=== PATIENT | female | born 1940 | race Caucasian/White ===

== ENCOUNTER 2016-11-30 14:48 | Inpatient (IN) ==
[2016-11-30] MEDS ORDERED: ASPIRIN PO STA (14:51)
--- NOTE | 2016-11-30 15:21 | PROVIDER DOCUMENTATION ---
HPI-Chest Pain - General Chief Complaint: Shortness of Breath Stated Complaint: SOB/HEAVINESS IN CHEST Time Seen by Provider: 11/30/16 15:01 Source: patient Allergies/Adverse Reactions: Patient Allergies Allergy/AdvReac Type Severity Reaction Status Date / Time No Known Allergies Allergy Verified 11/30/16 15:29 Home Medications: Home Medication List Medication Instructions Recorded Confirmed Last Taken Type Bumetanide [Bumex] 2 mg PO DAILY 05/30/14 11/30/16 1 Day Ago History Amlodipine Besylate/Benazepril 1 each PO DAILY 01/11/15 11/30/16 07/20/16 History [Amlodipine-Benazepril 5-20 mg] Pot Chloride/Pot Bicarb/Cit AC 20 meq PO DAILY 01/11/15 11/30/16 1 Day Ago History [Potassium Cl 25 Meq Tab Eff] Furosemide 40 mg PO DAILY 06/20/16 11/30/16 07/20/16 History Metoprolol Succinate 25 mg PO DAILY 06/20/16 11/30/16 1 Day Ago History PRAVAstatin [Pravachol] 40 mg PO QHS 06/20/16 11/30/16 1 Day Ago History Aspirin 81 mg PO DAILY #0 chewtab 06/27/16 11/30/16 1 Day Ago Rx Calcium Carbonate [Caltrate 600] 600 mg PO BID #0 tablet 06/27/16 11/30/16 1 Day Ago Rx Amiodarone HCl [Pacerone] 100 mg PO DAILY 07/20/16 11/30/16 07/20/16 History Tramadol [Ultram] 50 mg PO Q6H 07/20/16 11/30/16 1 Day Ago History Omeprazole 40 mg PO DAILY 07/21/16 11/30/16 07/20/16 History Rivaroxaban [Xarelto] 10 mg PO HS 11/30/16 11/30/16 Unknown History - History of Present Illness-CP Nature of Presenting Problem: 1 week of episodes of chest pressure and shortness of breath. Had episode today about 1:30 - Always occurs with activity. Feels substernal pressures, hard to breath, occ radiates to arms and sometimes feels lightheaded. no nausea or sweating. Hx cardiac stent in 2010. Had recent catheterization which showed low grade blockage- initially treated with eliquis but recently switched to xarelto. Cardiology Dr Bradley. Location: reports: substernal Chest Pain Radiation: reports: no radiation Quality of Pain: reports: pressure Onset/Duration: abrupt, other (episodic) Review of Systems - Adult - REVIEW OF SYSTEMS - ADULT Constitutional: reports: no symptoms reported Eyes: reports: no symptoms reported Ears, Nose, Mouth & Throat: reports: no symptoms reported Cardiovascular: reports: chest pain, other (lightheaded with chest pressure episodes) Respiratory: reports: dyspnea on exertion, shortness of breath Gastrointestinal: reports: no symptoms reported Genitourinary: reports: no symptoms reported Musculoskeletal: reports: joint pain (shoulders) Integumentary: reports: no symptoms reported Neurological: reports: no symptoms reported Psychiatric: reports: no symptoms reported Endocrine: reports: no symptoms reported Past History - Adult - PAST MEDICAL HISTORY-ADULT Review of Records: reports: Old Records Reviewed Major Childhood Illnesses: reports: denies history Cardiovascular: reports: CAD, CHF, HTN, hyperlipidemia, [place] Respiratory: reports: sleep apnea Gastrointestinal: reports: GERD Obstetrical/Gynecological: reports: denies history Genitourinary: reports: denies history Musculoskeletal: reports: denies history Neurological: reports: denies history Endocrine/Immune: reports: denies history Other Conditions: reports: denies history - PRIOR SURGERIES/PROCEDURES Surgical/Procedure History: reports: recent surgery, pacemaker, orthopedic ( extremity), back/neck (ant cervical fusion), other (cervical spine fusion) - PRIOR HOSPITALIZATIONS Prior Hospitalizations: reports: for similar symptoms - IMMUNIZATION STATUS Childhood Immunizations: See Nurse Assessment Flu Vaccine: See Nurse Assessment - FAMILY HISTORY Family History: reviewed, not pertinent Physical Exam-General - PHYSICAL EXAM-ADULT Initial Vital Signs Reviewed: Yes - CONSTITUTIONAL General Appearance: appears well, alert, no apparent distress - EYES Eyes: PERRL/EOMI - HEAD, EARS, NOSE, MOUTH & THROAT HENMT: normal ENT inspection - NECK Neck: non-tender, full range of motion, supple, normal inspection - RESPIRATORY Respiratory: chest non-tender, lungs clear, normal breath sounds - CARDIOVASCULAR Cardiovascular: normal peripheral pulses, regular rate, rhythm, no edema, no gallop, no JVD, no murmur - GASTROINTESTINAL (ABDOMEN) Abdominal Exam: normal bowel sounds, non tender, soft, no organomegaly - GENITOURINARY Rectal Exam: normal rectal tone (brown stool, heme positive) - LYMPHATIC Lymphatic: no adenopathy - MUSCULOSKELETAL Back Exam: normal inspection, no CVA tenderness, no vertebral tenderness Extremity: normal range of motion, non-tender, normal gait, normal inspection, no pedal edema - SKIN Integumentary: normal color, normal turgor, warm/dry - NEUROLOGIC Neurologic: grossly normal, no motor/sensory deficits - PSYCHIATRIC Psych/Mental Status: normal mood/affect, normal thought content Progress - PLAN OF CARE/RESULTS Progress/Plan/Lab Results: Vital Signs - 8 hr 11/30/16 14:52 11/30/16 18:27 Temperature 98.5 F Pulse Rate 59 L 69 Respiratory Rate 18 18 Blood Pressure 139/67 136/86 O2 Sat by Pulse Oximetry 98 96 11/30/16 17:18 Stool Occult Blood (MELCHOR) - Final Stool Laboratory Results - last 24 hr 11/30/16 11/30/16 11/30/16 15:15 15:15 15:15 WBC 5.16 RBC 2.98 L Hgb 8.0 L Hct 26.1 L MCV 87.6 MCH 26.8 L MCHC 30.7 L RDW Std Deviation 16.5 H Plt Count 233 MPV 12.8 H Immature Gran % (Auto) 0.0 Neut % (Auto) 65.4 Lymph % (Auto) 26.4 [place] % (Auto) 7.8 Eos % (Auto) 0.0 Baso % (Auto) 0.4 Immature Gran # (Auto) 0.00 Neut # (Auto) 3.38 Lymph # (Auto) 1.36 [place] # (Auto) 0.40 Eos # (Auto) 0.00 Baso # (Auto) 0.02 PT INR PTT (Actin FS) D-Dimer < 0.10 Sodium 139 Potassium 4.2 Chloride 100 Carbon Dioxide 26 Anion Gap 13 BUN 19 Creatinine 1.0 H Estimated GFR/1.73 m2 54 BUN/Creatinine Ratio 19 Glucose 92 Calculated Osmolality 279 Calcium 10.0 Magnesium 2.2 Total Bilirubin 0.29 AST 16 ALT 16 Alkaline Phosphatase 79 Creatine Kinase 92 Troponin T Oco-V-Fcvujvtglkw Pept Total Protein 7.2 Albumin 3.9 Globulin 3.3 Albumin/Globulin Ratio 1.2 Urine Source Urine Color Urine Turbidity Urine pH Ur Specific [place] Urine Protein Ur Glucose (Stick) Ur Ketones (Stick) Urine Blood Urine Nitrite Urine Bilirubin Urobilinogen Dipstick Urine Leukocytes Urine WBC (Auto) Urine RBC (Auto) U Epithel Cells (Auto) Urine Bacteria (Auto) 11/30/16 11/30/16 11/30/16 15:15 15:15 15:15 WBC RBC Hgb Hct MCV MCH MCHC RDW Std Deviation Plt Count MPV Immature Gran % (Auto) Neut % (Auto) Lymph % (Auto) [place] % (Auto) Eos % (Auto) Baso % (Auto) Immature Gran # (Auto) Neut # (Auto) Lymph # (Auto) [place] # (Auto) Eos # (Auto) Baso # (Auto) PT 12.0 H INR 1.13 PTT (Actin FS) 28.0 D-Dimer Sodium Potassium Chloride Carbon Dioxide Anion Gap BUN Creatinine Estimated GFR/1.73 m2 BUN/Creatinine Ratio Glucose Calculated Osmolality Calcium Magnesium Total Bilirubin AST ALT Alkaline Phosphatase Creatine Kinase Troponin T < 0.010 Zvy-T-Ppqmwhhxkzo Pept 1086 H Total Protein Albumin Globulin Albumin/Globulin Ratio Urine Source Urine Color Urine Turbidity Urine pH Ur Specific [place] Urine Protein Ur Glucose (Stick) Ur Ketones (Stick) Urine Blood Urine Nitrite Urine Bilirubin Urobilinogen Dipstick Urine Leukocytes Urine WBC (Auto) Urine RBC (Auto) U Epithel Cells (Auto) Urine Bacteria (Auto) 11/30/16 11/30/16 15:15 17:40 WBC RBC Hgb Hct MCV MCH MCHC RDW Std Deviation Plt Count MPV Immature Gran % (Auto) Neut % (Auto) Lymph % (Auto) [place] % (Auto) Eos % (Auto) Baso % (Auto) Immature Gran # (Auto) Neut # (Auto) Lymph # (Auto) [place] # (Auto) Eos # (Auto) Baso # (Auto) PT INR PTT (Actin FS) D-Dimer Sodium Potassium Chloride Carbon Dioxide Anion Gap BUN Creatinine Estimated GFR/1.73 m2 BUN/Creatinine Ratio Glucose Calculated Osmolality Calcium Magnesium Total Bilirubin AST ALT Alkaline Phosphatase Creatine Kinase Troponin T < 0.010 Lba-T-Vvqydeihnws Pept Total Protein Albumin Globulin Albumin/Globulin Ratio Urine Source CLEAN CATCH Urine Color STRAW Urine Turbidity CLEAR Urine pH 7.0 Ur Specific [place] 1.003 Urine Protein NEGATIVE Ur Glucose (Stick) NEGATIVE Ur Ketones (Stick) NEGATIVE Urine Blood NEGATIVE Urine Nitrite NEGATIVE Urine Bilirubin NEGATIVE Urobilinogen Dipstick NORMAL Urine Leukocytes NEGATIVE Urine WBC (Auto) <10 Urine RBC (Auto) <10 U Epithel Cells (Auto) <10 Urine Bacteria (Auto) NEGATIVE Orders Category Date Time Status Cardiac Monitoring DIRECTED Care 11/30/16 14:51 Active Oxygen Therapy- ED Nursing DIRECTED Care 11/30/16 14:51 Active Saline Loc NOW Care 11/30/16 14:51 Active CHEST-2 VIEWS [RAD] Stat Exams 11/30/16 14:51 Taken CBC WITH ELECTRONIC DIFF [HEME] Stat Lab 11/30/16 15:15 Completed CK PROFILE [SP CHEM] Stat Lab 11/30/16 15:15 Completed COMPREHENSIVE METABOLIC PANEL [CHEM] Stat Lab 11/30/16 15:15 Completed D-DIMER [CHEM] Stat Lab 11/30/16 15:15 Completed MAGNESIUM [CHEM] Stat Lab 11/30/16 15:15 Completed OCCULT BLOOD SCREENING [STOOL] Stat Lab 11/30/16 17:18 Completed PRO B-NATRIURETIC PEPTIDE Stat Lab 11/30/16 15:15 Completed PROTIME WITH INR [COAG] Stat Lab 11/30/16 15:15 Completed PTT [COAG] Stat Lab 11/30/16 15:15 Completed TROPONIN T Stat Lab 11/30/16 15:15 Completed TROPONIN T Stat Lab 11/30/16 17:40 Completed UA NIMS W/REFLEX CULT [URINALYSIS] Stat Lab 11/30/16 15:15 Completed 0.9% Sodium Chloride Inj [Ns] 1,000 ml Med 11/30/16 17:09 Discontinued IV 999 mls/hr Aspirin Med 11/30/16 14:51 Discontinued 325 mg PO STAT STA EKG [EKG] Stat Ther 11/30/16 14:51 Draft EKG [EKG] Stat Ther 11/30/16 17:26 Ordered Result Diagrams: 11/30/16 15:15 11/30/16 15:15 - EKG 1 Time of EKG reading by physician:: 17:40 EKG Read and Signed by:: Malou Navarro EKG Interpretation (*Must complete 3 of following elements*): Abnormal Rate: 71 Rhythm: atrial paced with pvc [place]: normal ST Wave: non-specific ST changes (T wave changes laterally stable) - XRAY 1 XRAY Study: Chest (consistent with emphysema, no acute changes) - CONSULTS/PCP/HOSPITALIST Notification #1 *Consult/PCP/Hospitalist*: Dr Miguel Time Discussed: 19:25 (called hospitalist 18:50) Reason/Comments: chest pain, worsening anemia Consult Disposition: Will see in ED, Admit Departure - Departure Time of Disposition Decision: 19:25 DIAGNOSIS: Angina pectoris, Anemia, GI bleed Disposition: ADMITTED INPATIENT 09 Certified Medical Emergency: Emergent Condition: Fair Referrals and Follow-Ups: Lance Douglas MD [Primary Care Provider] -
--- NOTE | 2016-11-30 15:35 | EKG Report ---
Test Performed on : 11/30/2016 2:54:41 PM Test Reason : Chest Pain Blood Pressure : / mmHG Vent. Rate : 067 BPM Atrial Rate : 081 BPM P-R Int : 230 ms QRS Dur : 080 ms QT Int : 450 ms P-R-T Axes : 000 022 101 degrees QTc Int : 475 ms Atrial-paced rhythm with prolonged AV conduction with premature ventricular or aberrantly conducted complexes. Nonspecific T wave abnormality Abnormal ECG When compared with ECG of 21-JUL-2016 00:46, Inverted T waves have replaced nonspecific T wave abnormality in Lateral leads Unconfirmed Result
[2016-11-30 15:43] LABS: MANUAL DIFF NEEDED? NO
[2016-11-30 15:53] LABS: BASO% 0.4 % (0.0-0.8); HEMATOCRIT 26.1 % (37.0-47.0); LYMPH# 1.36 X1000 (1.2-3.4); LYMPH% 26.4 % (20.5-51.1); MCH 26.8 PG (27-31); MCHC 30.7 g/dL (33-37); MCV 87.6 FL (81-99); MONO% 7.8 % (1.7-9.3); MPV 12.8 FL (7.4-10.4); NEUT% 65.4 % (42.2-75.2); PLT 233 X1000 (130-400); RBC 2.98 XMIL (4.2-5.4)
[2016-11-30 15:59] LABS: INR 1.13
[2016-11-30 16:19] LABS: ALBUMIN 3.9 g/dL (3.5-5.0); MAGNESIUM 2.2 mg/dL (1.5-2.7); POTASSIUM 4.2 mmol/L (3.5-5.1); TOTAL BILIRUBIN 0.29 mg/dL (0.20-1.00); TOTAL PROTEIN 7.2 g/dL (6.3-8.3)
[2016-11-30] MEDS ORDERED: NS 1,000 ML IV ONE (17:09)
[2016-11-30 17:20] LABS: URINE CULTURE NEEDED? NO; URINE MICRO REVIEW NEEDED? NO; URINE SOURCE CLEAN CATCH
[2016-11-30 17:24] LABS: BILIRUBIN URINE NEGATIVE (NEGATIVE); BLOOD URINE NEGATIVE (NEGATIVE); COLOR STRAW; GLUCOSE URINE NEGATIVE (NEGATIVE); LEUKOCYTES URINE NEGATIVE (NEGATIVE); NITRITE URINE NEGATIVE (NEGATIVE); PROTEIN URINE NEGATIVE (NEGATIVE); SP GRAVITY URINE 1.003; TURBIDITY URINE CLEAR (CLEAR); UR EPITHELIAL CELLS <10 /HPF (<10); URINE BACTERIA NEGATIVE /HPF; URINE RBC <10 /HPF (<10); URINE WBC <10 /HPF (<10); UROBILINOGEN URINE NORMAL (NORMAL)
[2016-11-30] MEDS ORDERED: TYLENOL PO PRN (22:51)
[2016-11-30] MEDS ORDERED: NITROGLYCERIN SL PRN (22:51)
[2016-11-30] MEDS ORDERED: SODIUM CHLORIDE 0.9% INJ SCH (22:51)
[2016-11-30] MEDS ORDERED: ZOFRAN IV PRN (22:51)
--- NOTE | 2016-11-30 23:31 | HISTORY AND PHYSICAL ---
PRIMARY CARE PROVIDER: Dr. Lance Douglas. CHIEF ANALYTICS OFFICER: Dr. Bradley. CHIEF COMPLAINT: Chest pain and shortness of breath. HISTORY OF PRESENT ILLNESS: Ms Zimmerman is a 76-year-old female who presented to the ER this afternoon with complaints of chest pain. The patient reports that her chest pain has been heavy in nature and has been intermittent for approximately 8 days since last . She reports that the chest pain is substernal and except for 1 episode only of some brief radiation of pain to her right arm she denies any other radiation of the pain. She does report associated symptoms of dyspnea upon exertion, fatigue and lightheadedness with her chest pain. The patient states that her chest pain only occurs when she is walking or exerting herself. It does not occur at rest. Chest pain is not reproducible with palpation. She reports that her volcanology professor is Dr. Bradley and that she sees him usually once a year. She has an appointment with him in the next 1-2 weeks for followup as well as a pacemaker check. She does have a history of sick sinus syndrome with pacemaker placement. She has a total of 2 cardiac stents. She reports that the last stent was placed in February 2016. She currently takes 81 mg aspirin as well as Xarelto 10 mg daily. Patient denies any headache, visual disturbances, abdominal pain, nausea, vomiting, or diarrhea. She denies any hematemesis, hematochezia or melena. She denies any dysuria or urinary frequency or pain, numbness or tingling in extremities. Patient does report that she does have a history of congestive heart failure and does take 40 mg of Lasix p.r.n. once daily as needed and does report that just recently she has had some increased swelling in her bilateral lower extremities though at this time she does not have any JVD noted. There is some very mild 1+ pitting edema noted in the bilateral ankles. She denies any fever, body aches or chills. The patient denies any previous history of gastrointestinal bleeding though does report that on her last colonoscopy she was reported to have polyps as well as some diverticulosis. She does also report a possible history of previous problems with anemia stating that she has in the past been placed on iron supplementation. Upon evaluation in the ER the patient was found to be anemic with a hemoglobin of 8 and hematocrit 26.1. She did have a positive Hemoccult though does not show any signs of bleeding at this time and as previously mentioned she denies any hematemesis, hematochezia or melena. She is hemodynamically stable at this time with last blood pressure being 134/57, heart rate 72. Patient's EKG does show atrial paced rhythm with prolonged AV conduction with PVCs. Also noted is some nonspecific T-wave abnormalities. Two sets of troponin in the ER were negative. ProBNP was 1086. At this time the patient denies any chest pain. We will admit the patient for further treatment, evaluation of her chest pain as well as her anemia with positive Hemoccult. REVIEW OF SYSTEMS: A 12 point review of systems was conducted with the patient and all were negative except for pertinent positives mentioned above HPI. PAST MEDICAL HISTORY: 1. COPD. 2. Asthma. 3. Obstructive sleep apnea. 4. Coronary artery disease with previous stent placement. 5. Pacemaker placement for sick sinus syndrome. 6. Congestive heart failure. 7. Hyperlipidemia. 8. Hypertension. 9. Gastroesophageal reflux disease. 10. Osteoarthritis. PAST SURGICAL HISTORY: 1. Pacemaker placement. 2. Cardiac stent placement. 3. Bilateral tubal ligation. 4. Lower back surgery for fusion of L3 through L5. 5. Recent neck surgery in 2016. 6. Right total hip arthroplasty in June 2016. 7. Bilateral carpal tunnel surgery. 8. Appendectomy. FAMILY HISTORY: The patient reports that her mother and father both had a history of heart disease. She reports that she does have siblings that have history of heart disease, hypertension, colon cancer and diabetes mellitus. There is also history of diabetes mellitus in other relatives as well. SOCIAL HISTORY: The patient currently does live alone though she does have a sister that lives near by. She denies any previous history of alcohol, tobacco or illicit drug use. ALLERGIES: Patient reports no known allergies. HOME MEDICATIONS: 1. Amiodarone 100 mg p.o. daily. 2. Amlodipine/benazepril 5/20 mg tablet 1 p.o. daily. 3. Aspirin 81 mg p.o. daily. 4. Bumex 2 mg p.o. daily. 5. Caltrate 600 mg p.o. b.i.d. 6. Furosemide 40 mg p.o. daily. The patient reports she only takes this as needed. 7. Metoprolol 25 mg p.o. daily. 8. Omeprazole 40 mg p.o. daily. 9. Potassium chloride 20 mEq tablet p.o. daily. 10. Pravastatin 40 mg p.o. at bedtime. 11. Xarelto 10 mg p.o. at bedtime. 12. Ultram 50 mg p.o. q.6 hours p.r.n. DIAGNOSTIC DATA/LABORATORY RESULTS: White blood cell count 5.16, hemoglobin 8.0, hematocrit 26.1, platelet count is 233,000. PT 12.0, INR 1.13, PTT 28. D-dimer less than 0.1. Sodium 139, potassium 4.2, chloride 100, bicarb 26, BUN 19, creatinine 1, GFR 54, glucose 92, calcium 10, magnesium 2.2. Liver function tests are within normal limits. CK 92, troponin less than 0.01 with a repeat of less than 0.01. ProBNP 1086. Urinalysis was obtained via clean catch was negative for protein, ketones, blood, nitrites, leukocytes or bacteria. EKG as stated above showed atrial paced rhythm with prolonged AV conduction with PVCs and nonspecific T-wave abnormality at a rate of 71, QTc was 506. Chest x-ray shows findings consistent with emphysema, no acute abnormalities noted. We are waiting for the official radiology over read. PHYSICAL EXAMINATION: VITAL SIGNS: Temperature 98.5 degrees, heart rate 72, respirations 16, blood pressure 134/57, oxygen saturation is 95% room air. GENERAL: Ms Zimmerman is a very pleasant 76-year-old female who is resting in the ER stretcher. She was in no acute distress. Was awake, alert and able to answer all questions appropriately. HEENT: Head is atraumatic, normocephalic. Pupils were equal, round, reactive to light, were 3 mm bilaterally and brisk. Sub conjunctivae were slightly pale. Oral mucosa was moist. Oropharynx is clear. NECK: Supple. Trachea midline. No JVD noted. CARDIOVASCULAR: Patient has normal S1, S2. No murmurs, gallops, or rubs appreciated with a regular rate and rhythm. PULMONARY: Patient has symmetrical chest expansion bilaterally. Lung sounds were clear to auscultation. Bilateral full drummond. ABDOMEN: Soft, nontender, nondistended. Bowel sounds are present in all 4 quadrants were normoactive. EXTREMITIES: No cyanosis, clubbing noted. The patient does have some mild edema in lower extremities which is I would say slight 1+ pitting edema in bilateral ankle area. Pulse, motor and sensory were intact in all extremities as well. Pedal pulses were 3+ bilaterally. INTEGUMENTARY: Patient's skin is pink, warm, dry, and intact. No lesions or sores noted. NEUROLOGICAL: Patient is alert, oriented to person, place, time, and situation. Cranial nerves 2- 12 are grossly intact. ASSESSMENT AND PLAN: 1. Chest pain. For this we will continue the patient's aspirin 81 mg. She was given a full-dose aspirin in the ER. She will be placed on a heart healthy diet. We have placed a consult with Dr. Bradley with cardiology. Will await their evaluation and further recommendations. We will continue to do a series of cardiac enzymes and repeat EKG in the morning. We have placed p.r.n. orders for nitroglycerin sublingual for chest pain though as previously mentioned the patient is not complaining of any chest pain at this time. She will be placed on telemetry and will monitor her cardiac status closely. We will place her NPO after midnight only for lipid profile in the morning and will continue to follow. 2. Anemia with positive Hemoccult, rule out gastrointestinal bleeding. The patient looking back does have a history of anemia in the past and does report that she has previously had to take iron supplements. She denies any history of gastrointestinal bleeding at this time reports no hematemesis, hematochezia or melena. She is hemodynamically stable as well. Given that the patient does have a history of coronary artery disease with stent placement, we will continue her aspirin and Xarelto therapy given her cardiac risk though will monitor her very closely for any signs of bleeding and will collect anemia profile in the morning and will continue to follow. We also placed a consult with Dr. Child of gastroenterology and will await his evaluation further recommendations as well. 3. Coronary artery disease. As mentioned above for #2 we did decide to go ahead and continue the patient's aspirin and Xarelto given her history of coronary artery disease and will continue treatment as mentioned above for #1. 4. Hypertension. Will continue the patient's blood pressure medications of amlodipine/benazepril and metoprolol and will continue to follow. 5. Hyperlipidemia. Will continue the patient's pravastatin and we have placed order for lipid profile to be drawn in the morning. The patient will placed on medical floor with telemetry. She will have vital signs q.4 hours and will do strict intake and output q.8 hours. DVT prophylaxis at this time is currently provided with Xarelto 10 mg as well as we did place order for the patient to have SCDs placed as well. She will be a on heart healthy diet. GI prophylaxis will be provided with Protonix 40 mg IV q.24 hours. Further orders and recommendations pending hospital course, diagnostic studies and physician evaluation. Dictated by ANAMIKA Ramirez for Jose Barnett MD cc: Lance Douglas MD
[2016-11-30] MEDS: PROTONIX IV SCH (23:37)
[2016-11-30] MEDS: ULTRAM PO SCH (23:37)
[2016-12-01] MEDS: ULTRAM PO SCH ×5 (04:53→21:44)
[2016-12-01 07:23] LABS: MANUAL DIFF NEEDED? NO
[2016-12-01 07:35] LABS: BASO% 0.3 % (0.0-0.8); EOS# 0.04 X1000 (0.0-0.7); EOS% 1.2 % (0.0-10.0); HEMATOCRIT 24.9 % (37.0-47.0); HEMOGLOBIN 7.4 g/dL (12.0-16.0); LYMPH# 1.23 X1000 (1.2-3.4); LYMPH% 38.3 % (20.5-51.1); MCH 26.3 PG (27-31); MCHC 29.7 g/dL (33-37); MCV 88.6 FL (81-99); MONO# 0.32 X1000 (0.11-0.59); NEUT% 50.2 % (42.2-75.2); PLT 190 X1000 (130-400); RBC 2.81 XMIL (4.2-5.4)
[2016-12-01 07:43] LABS: AGAP 12; BUN 14 mg/dL (8-22); CALCIUM 9.5 mg/dL (8.8-10.2); CHLORIDE 105 mmol/L (98-107); COSMO 283; IRON SATURATION 7 %; MAGNESIUM 2.1 mg/dL (1.5-2.7); SODIUM 142 mmol/L (136-145); TCO2 25 mmol/L (25-35); TIBC 408 ug/dL; TOTAL IRON 30 ug/dL (49-151); UNBOUND IRON 378 ug/dL (112-346)
[2016-12-01 08:30] LABS: FERRITIN 17 ng/mL (13-150)
[2016-12-01] MEDS: ASPIRIN PO SCH (09:01)
[2016-12-01] MEDS: TOPROL XL PO SCH (09:01)
[2016-12-01] MEDS: CORDARONE PO SCH (09:01)
[2016-12-01] MEDS: CALTRATE 600 PO SCH ×2 (09:02→20:47)
[2016-12-01] MEDS: BUMEX PO SCH (09:02)
[2016-12-01] MEDS: LOTREL 5/20 MG PO SCH (09:02)
[2016-12-01] MEDS ORDERED: VENOFER 300 MG in NS 250 ML IV ONE (09:30)
[2016-12-01] MEDS ORDERED: CYANOCOBALAMIN IM ONE (14:02)
--- NOTE | 2016-12-01 14:31 | PROGRESS NOTE ---
DATE: 12/01/2016 SUBJECTIVE: Today Ms. Zimmerman refers to be doing a little better. She is feeling a whole lot stronger than before. OBJECTIVE: Vital Signs: Blood pressure is 104/59, pulse is 53, respirations 16, temperature is 98.5 degrees. General: Ms. Zimmerman is a 76-year-old female. She was in bed and seems to be in no distress. She was sleeping very comfortably. HEENT: Mucosa is pink and moist. Anicteric. Acyanotic. Neck: Supple. Chest: Good air entry bilateral. No crepitations. Cardiovascular: Regular. Regular rate and rhythm. No murmur. No rubs. No gallops. Abdomen: Soft, nontender. Extremities: No pedal edema. 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 LABORATORY DATA: WBC is 3.21, hemoglobin is 7.4, platelet count of 190,000. Chemistries reviewed. Completely unremarkable. Iron level is 30, percent saturation is 7, ferritin is 17, vitamin B12 level is 237, folate is 34.1, which is elevated. IMAGING STUDIES: Review of imaging studies in the past. A barium GI swallow was done on 08/27/2016 which shows a moderate-sized hiatal hernia. Smooth narrowing at the gastroesophageal junction with intermittent passage of barium through this area appearance of which suggests achalasia. ASSESSMENT: 1. Generalized weakness and shortness of breath which I think is related to iron deficiency anemia. The patient is now status post 1 infusion of iron and she is referring to feel a whole lot better. 2. History of sick sinus syndrome. Patient with a pacemaker. 3. Changes of chronic obstructive pulmonary disease on chest x-ray. 4. Dyslipidemia. 5. History of coronary artery disease. 6. Moderate to severe hiatal hernia, Patient has been advised to get this evaluated by General surgery in the past and she is still thinking about that. 7. Esophageal achalasia. The patient intermittently complains of food sticking in the chest which I think is consistent with the barium swallow test results. GI has been consulted. I think Dr. Child is going to see her and possible EGD with dilation of gastroesophageal junction will be done. 8. Vitamin B12 deficiency. I think this is probably more nutritional in essence. We will however do intrinsic factor blocking antibody to make sure there is not any underlying pernicious anemia. I will also do a TSH level. cc: Miko Rueda MD
--- NOTE | 2016-12-01 14:41 | CONSULTATION ---
DATE OF CONSULTATION: 12/01/2016 CONSULTING PHYSICIAN: Dr. Santamaria. REASON FOR CONSULT: Profound anemia and heme-positive stool. HISTORY: This is a 76-year-old, female, who sees Dr. Bojorquez. She had a colonoscopy this August and had an EGD sometime back. Apparently, she has a large hiatal hernia. I am not sure if she did have Domenico lesion with it or not but she was scheduled for fundoplication by Dr. Gee. Apparently, she had to cancel that because of some illness. She has not seen Dr. Bojorquez or Dr. Gee back recently. She was brought to the emergency room with complaint of shortness of breath and chest pain. She was admitted when she was found to have profound anemia along with heme-positive stool. GI consult was obtained for further evaluation and treatment. The patient denies any visible signs of GI bleed. She has not had any heartburn or reflux symptoms. She has some dysphagia especially for solids but has not had any episode of acute impaction. She denies abdominal pain, abdominal cramps. Denies any nausea, vomiting. She has regular bowel movements. Has not seen any blood or mucus in her stool. Did not have any melena. She used to have dark stool when she was taking iron supplements which she has quit taking now. Since admission, she has received iron infusion and has felt better. She is no longer having any chest pain. She reported some dizziness and weakness yesterday especially when she kurt from sitting position. She has had some chest discomfort and shortness of breath but denies any palpitation, irregular heartbeat. Denied any change in appetite, has not lost any weight. PAST MEDICAL HISTORY: Significant for a hiatal hernia and gastroesophageal reflux disease. She also has history of hypertension, hyperlipidemia, coronary disease, congestive heart failure and has history of sick sinus syndrome. Currently has a pacemaker in place. She has history of COPD and asthma. She also has history of osteoarthritis. SURGERY: She has a history of bilateral tubal ligation, back surgery, neck surgery, history of hip surgery, bilateral carpal tunnel release, appendectomy and pacemaker was placed. She also has a history of PTCA and stent placement. MEDICATION: Prior to hospitalization, she was on Ultram, Xarelto, potassium chloride, Pravachol, omeprazole, metoprolol succinate, Lasix, Caltrate, Bumex, aspirin, amlodipine, omeprazole, and Pacerone. ALLERGIES: No known drug allergies. SOCIAL HISTORY: She is a and lives by herself. Does not smoke. Does not drink. Does not do illicit drugs. FAMILY HISTORY: Noncontributory. REVIEW OF SYSTEMS: As per HPI as above. EXAMINATION: Very pleasant white female. She is sitting up in the bed, conscious, alert, appears to be in no distress.Vital Signs: Temperature 98.5 degrees, pulse was 53, breathing at 15, blood pressure 104/59 mmHg. She is 184 pounds and she is 5 feet 3 inches tall. HEENT: Head is atraumatic, normocephalic. Eyes: Conjunctivae is pale. Sclerae anicteric. Nares are patent. No discharge. Mouth: Buccal mucosa is moist. Throat is normal. Neck: Is supple. No lymphadenopathy, thyromegaly. Chest: Has got a pacemaker in place. Otherwise clear to auscultate. No rhonchi or crepitations could be heard. Heart: S1, S2 audible. No murmur could be appreciated. Abdomen: Full, soft, nontender. I could not appreciate masses or megaly. No ascites noted. Bowel sounds are audible. Extremities: No pedal edema, cyanosis, clubbing was noted. DIVISION CHAIR: Grossly intact. No sensory or motor deficit. Labs reviewed which showed WBC of 3.21, hemoglobin 7.4, hematocrit 24.9, MCV 88.6, and platelets were 190,000. Sodium 142, potassium 4.1, chloride 105, bicarb 25, BUN is 14, creatinine 0.9. LFTs normal. Iron was 30, TIBC 408, ferritin level 17, B12 237, folate was 34.1. IMPRESSION: Profound anemia normocytic. The presentation is the history of hiatal hernia. 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 That is where she is bleeding from especially when she takes her Xarelto which makes her more prone to bleed. She has had chronic bleed with profound anemia. She was hemodynamically unstable but after iron infusion and hydration she has felt better and she is doing well now. She does not have any signs of active bleeding now that requires any endoscopic intervention. I would continue on proton pump inhibitor and I would leave it up to Cardiology whether to start her back on Xarelto or not. She needs to be followed up by Dr. Gee to be evaluated for possible fundoplication. I will continue to see her while she is in the hospital and Dr. Bojorquez will be back on the case on Saturday. The rest of the medical management as per the team. cc: Abdiaziz Child MD
--- NOTE | 2016-12-01 15:34 | CONSULTATION ---
DATE OF CONSULTATION: 12/01/2016 IMPRESSION: 1. Marked exertional dyspnea probably related to severe anemia. 2. Suspect recent gastrointestinal bleeding probably upper gastrointestinal in origin. 3. Atherosclerotic coronary disease with history of previous coronary angioplasty/stenting approximately 4 years ago. Patient continues without angina. Stress myocardial infarction perfusion study in July was negative for ischemia and indicated normal left ventricular ejection fraction. 4. Status post permanent pacemaker (dual-chamber). 5. Hypertension. 6. Obesity. 7. Gastroesophageal reflux disease. 8. Obstructive sleep apnea. 9. Hyperlipidemia. RECOMMENDATIONS: 1. Given severe anemia and suspected GI blood loss, will discontinue Xarelto. Patient is currently in AV paced rhythm. Presumably her Xarelto may have been prescribed for thromboembolic risk related to paroxysmal fibrillation. Risk, benefit ratio favors holding anticoagulation at this point. 2. Evaluation and management of severe anemia and possible gastrointestinal blood loss. HISTORY: This 76-year-old white female with past history of atherosclerotic coronary disease, previous permanent pacemaker implant for sick sinus syndrome, hypertension, obesity and gastroesophageal reflux disease was admitted for further evaluation and management of marked exertional dyspnea and severe anemia. She relates that over the past week she has developed exertional shortness of breath which has progressed to the point that just modest exertion provokes dyspnea. She also describes some chest discomfort which she further characterized as more of a pounding in her chest and up in her throat when she exerts. There has been no pain or anything that sounds like angina. She had stress myocardial perfusion study back in July which was negative for ischemia and indicated normal left ventricular ejection fraction. There has been no orthopnea. There has been no palpitations beyond what she describes. PAST MEDICAL HISTORY: 1. Atherosclerotic coronary disease with history of previous coronary angioplasty/stenting approximately 4 years ago. 2. Status post permanent pacemaker implant for sick sinus syndrome. 3. Presumed history of paroxysmal atrial fibrillation suppressed with amiodarone. 4. Hypertension. 5. Obesity. 6. Gastroesophageal reflux disease. PAST SURGICAL HISTORY: Includes bilateral tubal ligation, unspecified lower back surgery, unspecified neck surgery, right total hip arthroplasty, bilateral carpal tunnel surgery and appendectomy. ALLERGIES: She has no known drug allergies. MEDICATIONS: Prior to admission as listed. SOCIAL HISTORY: She does not smoke or use alcohol. FAMILY HISTORY: Negative for premature coronary disease. REVIEW OF SYSTEMS: Pulmonary: Noteworthy for exertional dyspnea but negative for cough or orthopnea. Gastrointestinal: Noteworthy for gastroesophageal reflux. She has not noted any black stools nor bright red blood per rectum. Constitutional: Negative. Remainder review of systems negative/noncontributory with 14 total systems reviewed. PHYSICAL EXAM: General: Reveals an overweight, older white female in no distress. Vital Signs: As recorded are stable include blood pressure 104/59, heart rate 53 and regular, oxygen saturation 97% on room air. HEENT Exam: Extraocular muscles appear intact. Mucous membranes are moist. Neck: Supple. No JV distention. There are no carotid bruits. Chest: Clear to auscultation bilaterally. Cardiac Exam: Reveals a regular rate and rhythm without appreciable murmur or gallop. Abdomen: Soft, nontender. Bowel sounds are normal. Extremities: Without edema. Neurologic Exam: Reveals her to be alert, fully oriented. Speech is fluent. Moves all 4 extremities equally well. Skin: Warm and dry. Psych exam: Reveals her mood to be appropriate. DIAGNOSTIC DATA: ECG demonstrates atrial paced rhythm and occasional ectopy paced complexes and nonspecific T-wave abnormality. Borderline QT interval prolongation evident. LAB DATA: Is remarkable for hematocrit 24.9 with an MCV of 88.6. BUN 14, creatinine 0.9. Ferritin 17, serum iron 30, TIBC 408, percent saturation 7. Troponin T less than 0.01. cc: Jh Ferguson MD
[2016-12-01] MEDS: PROTONIX IV SCH ×2 (20:47→21:44)
[2016-12-01] MEDS ORDERED: XARELTO PO SCH (21:00)
[2016-12-01] MEDS ORDERED: PRAVACHOL PO SCH (21:00)
[2016-12-02] MEDS: ULTRAM PO SCH ×2 (05:52→08:53)
[2016-12-02] MEDS: VENOFER 300 MG in NS 250 ML IV ONE ×2 (05:53→06:04)
[2016-12-02 07:42] LABS: MANUAL DIFF NEEDED? NO
[2016-12-02 07:43] LABS: BASO% 0.3 % (0.0-0.8); HEMATOCRIT 24.6 % (37.0-47.0); HEMOGLOBIN 7.4 g/dL (12.0-16.0); LYMPH# 1.25 X1000 (1.2-3.4); LYMPH% 32.7 % (20.5-51.1); MCH 26.4 PG (27-31); MCHC 30.1 g/dL (33-37); MCV 87.9 FL (81-99); MONO# 0.43 X1000 (0.11-0.59); MONO% 11.3 % (1.7-9.3); MPV 12.9 FL (7.4-10.4); NEUT% 55.7 % (42.2-75.2); PLT 217 X1000 (130-400)
[2016-12-02 08:13] LABS: AGAP 14; BUN 13 mg/dL (8-22); CALCIUM 9.7 mg/dL (8.8-10.2); CHLORIDE 104 mmol/L (98-107); COSMO 284; POTASSIUM 3.8 mmol/L (3.5-5.1); SODIUM 143 mmol/L (136-145); TCO2 25 mmol/L (25-35)
[2016-12-02] MEDS: CALTRATE 600 PO SCH (08:14)
[2016-12-02] MEDS: LOTREL 5/20 MG PO SCH (08:14)
[2016-12-02] MEDS: TOPROL XL PO SCH (08:14)
[2016-12-02] MEDS: BUMEX PO SCH (08:14)
[2016-12-02] MEDS: ASPIRIN PO SCH (08:14)
[2016-12-02] MEDS: CORDARONE PO SCH (08:14)
[2016-12-02] MEDS ORDERED: VITAMIN B-12 PO SCH ×2 (09:00→09:35)
[2016-12-02 11:20] VITALS: BP 128/57
--- NOTE | 2016-12-02 12:44 | PROGRESS NOTE ---
DATE: 12/02/2016 SUBJECTIVE: Patient is resting comfortably. She had a good lunch. She denies any abdominal pain, abdominal cramp. Has not had any heartburn or reflux symptoms. She has received a total of 2 units of iron and has responded well to it and feels better. Has not had any dizziness or lightheadedness. PLAN: She is scheduled to be discharged today. I have advised her to follow up with Dr. Bojorquez and Dr. Gee. cc: Abdiaziz Child MD
[2016-12-02] MEDS ORDERED: FERROUS SULFATE PO SCH (21:00)
[2016-12-02] MEDS ORDERED: COLACE PO SCH (21:00)
--- NOTE | 2016-12-03 06:02 | EKG Report ---
Test Performed on : 12/01/2016 06:22:28 AM Test Reason : Chest Pain Blood Pressure : / mmHG Vent. Rate : 067 BPM Atrial Rate : 105 BPM P-R Int : 258 ms QRS Dur : 080 ms QT Int : 460 ms P-R-T Axes : 000 039 -58 degrees QTc Int : 486 ms Atrial-paced rhythm with prolonged AV conduction with occasional AV dual-paced complexes and with oc casional premature ventricular complexes. Nonspecific T wave abnormality Prolonged QT Abnormal ECG When compared with ECG of 30-NOV-2016 17:32, (Unconfirmed) Vent. rate has decreased BY 4 BPM Confirmed by Ricardo MAN, Edu Banks ([id number]) on 12/03/2016 6:33:53 PM
--- NOTE | 2016-12-03 06:11 | DISCHARGE SUMMARY ---
ADMISSION DATE: 11/30/2016 DISCHARGE DATE: 12/02/2016 DISPOSITION: Home. FOLLOWUP: 1. Patient's PCP - Lance Douglas MD 2. Yahir Gee MD 3. Rony Bojorquez MD 4. Jh Ferguson MD CONSULTATION DURING THIS ADMISSION: 1. Gastroenterology was consulted. Patient was seen by Abdiaziz Child MD 2. Cardiology was consulted. Patient was seen by Jh Ferguson MD INVASIVE PROCEDURES DONE DURING THIS ADMISSION: None. IMAGING STUDIES OF SIGNIFICANCE: None. PRESENTING COMPLAINT: Shortness of breath. ADMISSION DIAGNOSES: 1. Chest pain. 2. Anemia with positive Hemoccult. 3. Coronary artery disease. 4. Hypertension. DISCHARGE DIAGNOSES: 1. Generalized weakness. 2. Shortness of breath secondary to severe symptomatic anemia. 3. Iron deficiency anemia. 4. Sick sinus syndrome, status post pacemaker. 5. Chronic obstructive pulmonary disease changes on chest x-ray. 6. Moderate to severe hiatal hernia. 7. Esophageal achalasia. 8. Vitamin B12 deficiency. 9. Anticoagulation with Xarelto. This has been discontinued. PRESENTING COMPLAINT: Was chest pain and shortness of breath. PRESENT COMPLAINT: Ms. Zimmerman is a 76-year-old female, who presented to the emergency department because of a week's history of progressively worsening shortness of breath associated with craving for ice. Upon presentation, the patient was evaluated and was found to have a hemoglobin level of 8.1. Hemoccult was positive. Further workup revealed severe iron deficiency. HOSPITAL COURSE: The patient was given 2 infusions of iron and subsequently she referred to be doing a whole lot better. Was seen by both Cardiology and Gastroenterology. Cardiology recommended to hold off on her Xarelto since it was felt that she could be having chronic slow GI loss from the blood thinner. Since the patient was not hemorrhaging, GI also felt it was okay to optimize her hemodynamics and then later do endoscopies outpatient with her GI doctor, Dr. Bojorquez. Of note, the patient was found to have significant hiatal hernia. She actually knew about this. GI felt that probably is Domenico lesions in the esophagus and that she needs to follow up with Dr. Yahir Gee to plan possible fundoplication, which can be done from outpatient setting. Today, Ms. Zimmerman refers to be doing a whole lot better after the infusions of iron. She has been up. She is walking around. Her vitals have been stable. We therefore felt she is stable to be discharged, to follow up with the sub-specialties involved in her care. DISCHARGE MEDICATIONS: 1. Amlodipine/benazepril 1 tablet daily. 2. Pravastatin 40 mg daily. 3. Furosemide 40 mg daily. 4. Metoprolol 25 mg daily. 5. Aspirin 81 mg daily. 6. Amiodarone 100 mg daily. 7. Tramadol 50 q. 6 hours PRN. 8. Xarelto has been discontinued. 9. Iron sulfate 325 b.i.d. 10. Cyanocobalamin 1000 mcg daily. At the time of discharge, the only pending lab was intrinsic factor blocking agent to further evaluate for the B12 deficiency. Patient will get to review this with her primary care with her GI doctor. All her vitals are stable. The patient is going to be discharged in stable condition. TIME SPENT: The time spent for discharge was 35 minutes. cc: Miko Rueda MD
--- NOTE | 2016-12-03 08:56 | Diag Imaging Result Document ---
PROCEDURE NAME: CHEST-2 VIEWS - 11/30/2016 2 VIEWS OF THE CHEST: FINDINGS: There is a large hiatal hernia. There is some lobulation of the hemidiaphragms which has not changed since 07/20/2016. There is a pacemaker on the left. There is no evidence of acute pulmonary disease. IMPRESSION: Stable chest.
--- NOTE | 2016-12-03 09:17 | EKG Report ---
Test Performed on : 11/30/2016 5:32:31 PM Test Reason : chest pain Blood Pressure : / mmHG Vent. Rate : 071 BPM Atrial Rate : 108 BPM P-R Int : 242 ms QRS Dur : 074 ms QT Int : 466 ms P-R-T Axes : 000 019 016 degrees QTc Int : 506 ms Atrial-paced rhythm with prolonged AV conduction with frequent AV dual-paced complexes and with freq uent premature ventricular complexes. T wave abnormality, consider inferior ischemia Abnormal ECG When compared with ECG of 30-NOV-2016 14:54, (Unconfirmed) Electronic ventricular pacemaker has replaced Electronic atrial pacemaker Unconfirmed Result
== END 2016-12-02 13:29 | disposition home or self-care (01) ==
LOC: ED 14:48 → 3N 21:39 → SUATTDRO 21:39
PROVIDERS: ATTEND Internal Medicine

== ENCOUNTER 2017-02-23 17:36 | Inpatient (IN) ==
[2017-02-23 18:56] LABS: BASO% 0.2 % (0.0-0.8); EOS# 0.01 X1000 (0.0-0.7); EOS% 0.2 % (0.0-10.0); HEMATOCRIT 24.7 % (37.0-47.0); HEMOGLOBIN 7.6 g/dL (12.0-16.0); IMM GRAN# 0.01 X1000 (0.0-0.04); IMM GRAN% 0.2 % (0.0-0.5); LYMPH# 1.14 X1000 (1.2-3.4); LYMPH% 18.8 % (20.5-51.1); MANUAL DIFF NEEDED? NO; MCH 28.7 PG (27-31); MCHC 30.8 g/dL (33-37); MCV 93.2 FL (81-99); MONO# 0.45 X1000 (0.11-0.59); MONO% 7.4 % (1.7-9.3); NEUT% 73.2 % (42.2-75.2); PLT 144 X1000 (130-400); RBC 2.65 XMIL (4.2-5.4)
[2017-02-23 19:19] LABS: ALBUMIN 3.8 g/dL (3.5-5.0); CALCIUM 9.2 mg/dL (8.8-10.2); POTASSIUM 3.9 mmol/L (3.5-5.1); TOTAL BILIRUBIN 0.2 mg/dL (0.20-1.00); TOTAL PROTEIN 6.6 g/dL (6.3-8.3)
--- NOTE | 2017-02-23 19:27 | PROVIDER DOCUMENTATION ---
HPI-General Adult - General Chief Complaint: General Adult Stated Complaint: WEAKNESS,DIZZINESS Time Seen by Provider: 02/23/17 18:30 Source: patient Allergies/Adverse Reactions: Patient Allergies Allergy/AdvReac Type Severity Reaction Status Date / Time No Known Allergies Allergy Verified 12/08/16 01:47 Home Medications: Home Medication List Medication Instructions Recorded Confirmed Last Taken Type Bumetanide [Bumex] 2 mg PO DAILY 05/30/14 02/23/17 02/22/17 History Amlodipine Besylate/Benazepril 1 each PO DAILY 01/11/15 02/23/17 02/22/17 History [Amlodipine-Benazepril 5-20 mg] Pot Chloride/Pot Bicarb/Cit AC 20 meq PO DAILY 01/11/15 02/23/17 02/22/17 History [Potassium Cl 25 Meq Tab Eff] Furosemide 40 mg PO DAILY 06/20/16 02/23/17 02/22/17 History Metoprolol Succinate 50 mg PO DAILY 06/20/16 02/23/17 02/22/17 History PRAVAstatin [Pravachol] 40 mg PO QHS 06/20/16 02/23/17 02/22/17 History Aspirin 81 mg PO DAILY #0 chewtab 06/27/16 02/23/17 02/22/17 Rx Omeprazole 40 mg PO DAILY 07/21/16 02/23/17 02/22/17 History Calcium Carbonate/Vitamin D3 1 each PO DAILY 12/10/16 02/23/17 02/22/17 History [Calcium 600 + Vit D Tablet] Cyanocobalamin (Vitamin B-12) 1,000 mcg PO DAILY 12/10/16 02/23/17 02/22/17 History [Vitamin B-12] Ferrous Sulfate 2 mg PO DAILY 12/10/16 02/23/17 02/22/17 History Iron,Carbonyl/Ascorbic Acid [Fe C 2 each PO DAILY 12/10/16 02/23/17 02/22/17 History Tablet] Rivaroxaban [Xarelto] 20 mg PO DAILY 12/10/16 02/23/17 02/22/17 History Sucralfate [Carafate] 1 gm PO 4XDAY 12/10/16 02/23/17 02/22/17 History Hydrocodone/APAP 10 mg/325 mg 1 each PO Q4H PRN PRN #30 tablet 12/13/1602/22/17 Rx [Sprague-10] Gabapentin [Neurontin] 100 mg PO QHS #15 capsule 01/18/17 02/23/17 02/22/17 Rx Ketorolac [Toradol] 10 mg PO Q6H PRN PRN #6 tablet 01/18/17 02/23/17 02/22/17 Rx - History of Present Illness -Gen Adult Nature of Presenting Problems: PT C/O BLACK STOOL AND ABD PAIN. STS SHE WAS SEEN AT [facility] TODAY AND SENT HERE FOR LOW H/H. HX OF ABD SURGERY IN DECEMBER AFTER WHICH SHE HAS HAD "CONSTANT PROBLEMS". ALSO HAS BEEN VOMITING AFTER PO INTAKE, DENIES BLACK OR COFFEE-GROUND EMESIS. Location of Pain/Injury: reports: abdomen Quality of Pain: reports: dull Severity: reports: mild Associated Symptoms: reports: weakness Similar Symptoms Previously?: Yes Recently seen or treated by another doctor?: Yes Review of Systems - Adult - REVIEW OF SYSTEMS - ADULT Constitutional: reports: see HPI, fatique. denies: fever Eyes: reports: no symptoms reported Ears, Nose, Mouth & Throat: reports: no symptoms reported Cardiovascular: reports: no symptoms reported. denies: chest pain, palpitations , syncope Respiratory: reports: no symptoms reported. denies: dyspnea on exertion, shortness of breath Gastrointestinal: reports: see HPI, abdominal pain, constipation, nausea, vomiting Genitourinary: reports: no symptoms reported Musculoskeletal: reports: see HPI, muscle weakness Integumentary: reports: no symptoms reported Neurological: reports: no symptoms reported Psychiatric: reports: no symptoms reported Endocrine: reports: no symptoms reported Hematologic/Lymphatic: reports: no symptoms reported Allergic/Immunologic: reports: no symptoms reported All Other Systems: Reviewed and Negative Past History - Adult - PAST MEDICAL HISTORY-ADULT Review of Records: reports: Old Records Reviewed, Nursing Assessment Review, Medications Reviewed Major Childhood Illnesses: reports: denies history Cardiovascular: reports: CAD, CHF, HTN, hyperlipidemia, [place] Respiratory: reports: sleep apnea Gastrointestinal: reports: GERD, GI bleed Obstetrical/Gynecological: reports: denies history Genitourinary: reports: denies history Musculoskeletal: reports: denies history Neurological: reports: denies history Endocrine/Immune: reports: denies history Other Conditions: reports: denies history - PRIOR SURGERIES/PROCEDURES Surgical/Procedure History: reports: recent surgery, pacemaker, orthopedic ( extremity), back/neck (ant cervical fusion), other (cervical spine fusion) - PRIOR HOSPITALIZATIONS Prior Hospitalizations: reports: for similar symptoms - IMMUNIZATION STATUS Childhood Immunizations: See Nurse Assessment Flu Vaccine: See Nurse Assessment - FAMILY HISTORY Family History: reviewed, not pertinent Physical Exam-General - PHYSICAL EXAM-ADULT Initial Vital Signs Reviewed: Yes - CONSTITUTIONAL General Appearance: appears well, alert, no apparent distress - EYES Eyes: PERRL/EOMI - HEAD, EARS, NOSE, MOUTH & THROAT HENMT: moist mucous membranes - RESPIRATORY Respiratory: chest non-tender, lungs clear, normal breath sounds, no pleuratic chest pain, no respiratory distress, no accessory muscle use - CARDIOVASCULAR Cardiovascular: regular rate, rhythm - GASTROINTESTINAL (ABDOMEN) Abdominal Exam: normal bowel sounds, no organomegaly, no pulsatile mass, distended, tenderness (GENERALIZED) - MUSCULOSKELETAL Extremity: normal range of motion, non-tender, normal gait, normal inspection - SKIN Integumentary: normal turgor, warm/dry, other (PALE) - NEUROLOGIC Neurologic: grossly normal, no motor/sensory deficits - PSYCHIATRIC Psych/Mental Status: normal mood/affect, oriented x 3 Progress - PLAN OF CARE/RESULTS Progress/Plan/Lab Results: Vital Signs - 8 hr 02/23/17 17:40 Temperature 98.9 F Pulse Rate 62 Respiratory Rate 18 Blood Pressure 105/63 O2 Sat by Pulse Oximetry 96 Laboratory Results - last 24 hr 02/23/17 02/23/17 18:07 18:07 WBC 6.08 RBC 2.65 L Hgb 7.6 L Hct 24.7 L MCV 93.2 MCH 28.7 MCHC 30.8 L RDW Std Deviation 17.6 H Plt Count 144 MPV Not Reportable Immature Gran % (Auto) 0.2 Neut % (Auto) 73.2 Lymph % (Auto) 18.8 L Allen % (Auto) 7.4 Eos % (Auto) 0.2 Baso % (Auto) 0.2 Immature Gran # (Auto) 0.01 Neut # (Auto) 4.46 Lymph # (Auto) 1.14 L Allen # (Auto) 0.45 Eos # (Auto) 0.01 Baso # (Auto) 0.01 Sodium 137 Potassium 3.9 Chloride 102 Carbon Dioxide 23 L Anion Gap 12 BUN 36 H Creatinine 1.2 H Estimated GFR/1.73 m2 44 BUN/Creatinine Ratio 30 Glucose 109 H Calculated Osmolality 283 Calcium 9.2 Total Bilirubin 0.20 AST 15 ALT 12 Alkaline Phosphatase 66 Total Protein 6.6 Albumin 3.8 Globulin 3.0 Albumin/Globulin Ratio 1.0 Orders Category Date Time Status CBC WITH ELECTRONIC DIFF [HEME] Stat Lab 02/23/17 18:07 Completed CMP [COMPREHENSIVE METABOLIC PANEL] [CHEM] Stat Lab 02/23/17 18:07 Completed DISCUSSED PT LABS AND EXAM WITH DR. AMES WHO AGREES WITH PLAN TO ADMIT. Result Diagrams: 02/23/17 18:07 02/23/17 18:07 - CONSULTS/PCP/HOSPITALIST Notification #1 *Consult/PCP/Hospitalist*: DR. GARCIA Time Discussed: 20:50 (CALL [facility] TO ADMIT.) Consult Disposition: other #2 Consult: DR. FLOWER Time Discussed: 22:00 (ADMIT TO [facility] CICU.) Consult Disposition: Admit Departure - Departure Date of Disposition Decision: 02/23/17 Time of Disposition Decision: 20:50 DIAGNOSIS: GI (gastrointestinal bleed) Qualifiers: GI bleed type/associated pathology: unspecified gastrointestinal hemorrhage type Qualified Code(s): K92.2 - Gastrointestinal hemorrhage, unspecified Disposition: [facility] 02 Certified Medical Emergency: Emergent Condition: Good - Critical Care Note This patient required my direct & personal management of CC.: No Attestation - Physician/ MARGAUX Attestation Patient care was provided by Advanced Practice Provider:: Yes Advanced Practice Provider:: [place] Advanced Practice Provider documentation review:: The Mid-level provider documentation, treatment plan and medical decision making was reviewed by the physician who agrees with all treatment and medical decision making by the MLP.
[2017-02-23 21:20] LABS: OCCULT BLOOD 1 POSITIVE (NEGATIVE)
[2017-02-24 01:05] LABS: INR 2.23 (0.86-1.15); PROTIME 24.8 Seconds (12.1-15.5); PTT PL 35.1 Seconds (22.6-43.9)
[2017-02-24] MEDS: NS 1,000 ML IV SCH ×2 (01:12→20:28)
[2017-02-24] MEDS ORDERED: PROTONIX 80 MG in NS 80 ML IV ONE (02:04)
[2017-02-24] MEDS: PROTONIX 80 MG in NS 80 ML IV SCH ×2 (02:57→12:48)
[2017-02-24] MEDS ORDERED: TYLENOL PO PRN (05:22)
[2017-02-24] MEDS ORDERED: ZOFRAN IV PRN (05:22)
[2017-02-24 06:12] LABS: IRON SATURATION 7 %; TIBC 364 ug/dL; TOTAL IRON 27 ug/dL (49-151); UNBOUND IRON 337 ug/dL (112-346)
[2017-02-24 06:31] LABS: FERRITIN 16 ng/mL (13-150)
--- NOTE | 2017-02-24 08:57 | PROGRESS NOTE ---
DATE: 02/24/2017 SUBJECTIVE: Ms. Zimmerman states that she is feeling better. This is a 76-year-old who was admitted to the hospital, I think early this morning. She has complained of weakness and dizziness. Her list of medications were reviewed. PHYSICAL EXAMINATION: Vital Signs: This morning, she has a temperature of 98.2 degrees, pulse 60, respirations 18, blood pressure 126/53. Lungs: Clear in all lung drummond. Cardiovascular Examination: Regular rhythm and rate without murmur or S3. Abdomen: Soft. Skin: Warm and dry. Weight: Was 179 pounds. Is and Os: Urine output from last night was 1300 mL. LAB: White count 6080, hematocrit 24, platelet count 144,000. Sodium 137, potassium 3.9, chloride 102, bicarb 23, BUN 36, creatinine 1.2, blood sugar 109, calcium 9.2. Note, that her iron was 27, total iron binding capacity was 364. CBC: Hemoglobin was 7.6, hematocrit 24, MCV of 23. Prothrombin time was 24.8, INR 2.23. ASSESSMENT AND PLAN: 1. Normocytic anemia. 2. Complains that her abdomen has not been moving. 3. Note, she has had a past history of chronic obstructive pulmonary disease. 4. Asthma. 5. Obstructive sleep apnea. 6. Coronary artery disease with previous stent placement. 7. Pacemaker placement. 8. Congestive heart failure. 9. Hyperlipidemia. 10. Hypertension. 11. Gastroesophageal reflux disease. 12. Osteoarthritis. 13. Bilateral tubal ligation. 14. Lower back surgery for L3 and L5. 15. Recent neck surgery in 2016. 16. Right total hip arthroplasty in June of 2016. 17. Bilateral carpal tunnel syndrome. 18. Appendectomy. PLAN: Apparently, she is admitted for a GI bleed. I assume it was a lower GI bleed. She is receiving some blood. GI is following. cc: MD Jose Thompson MD
[2017-02-24 10:24] LABS: MANUAL DIFF NEEDED? NO
[2017-02-24 10:53] LABS: BASO% 0.3 % (0.0-0.8); EOS# 0.01 X1000 (0.0-0.7); EOS% 0.3 % (0.0-10.0); HEMATOCRIT 25.1 % (37.0-47.0); LYMPH# 1.05 X1000 (1.2-3.4); LYMPH% 26.4 % (20.5-51.1); MCH 29.2 PG (27-31); MCHC 31.9 g/dL (33-37); MCV 91.6 FL (81-99); MONO# 0.32 X1000 (0.11-0.59); PLT 109 X1000 (130-400); RBC 2.74 XMIL (4.2-5.4)
[2017-02-24 11:02] LABS: AGAP 9; BUN 25 mg/dL (8-22); CALCIUM 9.1 mg/dL (8.8-10.2); CHLORIDE 110 mmol/L (98-107); COSMO 287; POTASSIUM 4.3 mmol/L (3.5-5.1); SODIUM 142 mmol/L (136-145); TCO2 23 mmol/L (25-35)
--- NOTE | 2017-02-24 17:14 | HISTORY AND PHYSICAL ---
DATE AND TIME: February 24, 2017 at 0130. PRIMARY CARE PROVIDER: Dr. Lance Douglas. CHIEF COMPLAINT: Weakness, abnormal hemoglobin and hematocrit, and dark stools. HISTORY OF PRESENT ILLNESS: Ms. Zimmerman is a 76-year-old female with a past medical history most notable for COPD, obstructive sleep apnea, coronary artery disease status post stent placement, pacemaker placement, congestive heart failure, hypertension, and anemia. She was most recently admitted in November of 2016 for chest pain, as well as anemia. During this visit she was diagnosed with iron deficiency anemia as well as esophageal achalasia and hiatal hernia. The patient reports she has previously had problems with esophageal stricture as well and has had to have multiple EGDs done in the past. Her administrative dietitian is Dr. Bojorquez. Though most recently in December 2016 Dr. Gee did perform a laparoscopic hiatal hernia repair as well as a laparoscopic Heller myotomy. His findings reported that she had a sliding hiatal hernia. Also noted at the conclusion of surgery they did perform an EGD which revealed no esophageal perforation. Dr. Gee also reported that he decided not to do a fundoplication due to the fact that the patient was not having any symptomatic reflux. She did not have any reflux on her barium swallow or any esophagitis on her EGD, as well as she had no esophageal perforation. She was discharged to follow up with Dr. Bojorquez. The patient states that ever since she underwent this procedure she has had worsening reflux, to where now she has trouble swallowing fluids down, stating that she is having a lot of problems with vomiting. She did see Dr. Bojorquez for this. He did place her medication but the patient did not know the name of this medicine at this time. She did receive an EGD approximately 3 weeks ago, though did not state any known findings as well and she was supposed to follow back up with Dr. Bojorquez according to her. The patient states that approximately 5 days ago she did notice that she was having some darker looking stools, though her main complaint at this time was that yesterday she began having a lot of weakness and dizziness, as well as exertional dyspnea. The patient states that she does not have any loose stools at this time, that she normally has problems with constipation. Her last bowel movement was a couple days ago but that she did have a little bit of a bowel movement today which revealed dark black stools. She presented to the ER at [place] after being informed by her physician's office that she had an abnormal hemoglobin and hematocrit. Once her arrival at [place] she was found to have a hemoglobin of 7, hematocrit 24, and a positive Hemoccult stool. Dr. Wen has been consulted and the patient was transferred to [facility] for further evaluation and treatment. REVIEW OF SYSTEMS: A 12 point review of systems was conducted with the patient and all were negative except for pertinent positives mentioned in the HPI. The patient denies any headache but does report some dizziness. She denies any chest pain but did report some dyspnea on exertion. She does report some generalized intermittent crampy abdominal pain. She does report some nausea and vomiting. She denies any diarrhea. She denies any urinary frequency or dysuria. Denies any pain, numbness, tingling, or swelling in her legs. She also did not report any fever, body aches, or chills. PAST MEDICAL HISTORY: 1. COPD. 2. Asthma. 3. Obstructive sleep apnea. 4. Coronary artery disease, status post stent placement. 5. Pacemaker placement for sick sinus syndrome. 6. Congestive heart failure. 7. Hyperlipidemia. 8. Hypertension. 9. Gastroesophageal reflux disease. 10. Osteoarthritis. 11. Hiatal hernia. 12. Esophageal aclasia. 13. Iron-deficiency anemia. 14. Atrial fibrillation, currently on Xarelto. PAST SURGICAL HISTORY: 1. Pacemaker placement. 2. Cardiac stent placement. 3. Bilateral tubal ligation. 4. Lower back surgery for fusion of L3 through L5. 5. Recent neck surgery in 2016. 6. Right total hip arthroplasty in June of 2016. 7. Bilateral carpal tunnel surgery. 8. Appendectomy. 9. Recent hiatal hernia repair with laparoscopic Heller myotomy. SOCIAL HISTORY: The patient currently does live alone. They report that she has a sister that lives near by. She denies any previous history of alcohol, tobacco, or illicit drug use. FAMILY HISTORY: Positive for her mother and her father both having a history of heart disease. She reports that she does have siblings that have heart disease, hypertension, colon cancer, and diabetes mellitus. There is also a history of diabetes mellitus in other relatives. ALLERGIES: Patient has no known allergies. HOME MEDICATIONS: 1. Amlodipine benazepril 5/20 mg tablet 1 p.o. daily. 2. Aspirin 81 mg p.o. daily. 3. Bumex 2 mg p.o. daily. 4. Calcium 600 plus vitamin D 600 mg p.o. daily. 5. Vitamin B12 1000 mcg p.o. daily. 6. Iron carbonyl ascorbic acid tablet two p.o. daily. 7. Toradol 10 mg p.o. q.6 hours p.r.n. as needed for pain. 8. Metoprolol 50 mg p.o. daily. 9. Omeprazole 40 mg p.o. daily. 10. Potassium chloride 25 mEq tablet p.o. daily. 11. Pravastatin 40 mg p.o. at bedtime. 12. Ranitidine 300 mg p.o. daily. 13. Xarelto 20 mg p.o. daily. 14. Sucralfate 1 g p.o. 4 times a day. DIAGNOSTIC DATA/LABORATORY RESULTS: White blood cell count 2.6, hemoglobin 7.6 , hematocrit 24.7, platelet count is 144,000. PTT 24.8, INR 2.23. PTT 35.1. Sodium 137, potassium 3.9, chloride 102, bicarb 23, BUN 36, creatinine 1.2 with a GFR 44, glucose 109, calcium 9.2. Liver function tests within normal limits. Hemoccult stool was positive. Pending diagnostic studies at this time are an EKG, anemia profile, and repeat CBC. PHYSICAL EXAMINATION: VITAL SIGNS: Temperature 98.3 degrees, heart rate 62, respirations 18, blood pressure 115/42, oxygen saturation 100% on room air. GENERAL: Ms. Zimmerman is a very pleasant, 76-year-old female who is resting comfortably in the inpatient stretcher. She is in no acute distress. She was awake, alert, and able to answer all questions appropriately. HEENT: Head is atraumatic, normocephalic. Pupils are equal, round, reactive to light, were 3 mm bilaterally and brisk. Subconjunctivae were slightly pale. Oral mucosa is moist. Oropharynx is clear. NECK: Supple. Trachea midline. CARDIOVASCULAR: Patient has normal S1, S2. No murmurs, gallops, rubs appreciated with a regular rate and rhythm. PULMONARY: Patient has symmetrical chest expansion bilaterally. Lung sounds clear to auscultation bilateral full drummond. ABDOMEN: Soft, nondistended, nontender. Bowel sounds are present in all 4 quadrants. EXTREMITIES: No cyanosis, clubbing, or edema noted. Pulse, motor, and sensory is intact in all extremities. Pedal pulses are 2+ bilaterally. INTEGUMENTARY: Patient's skin color is pink, warm, dry, and intact. No lesions or sores noted. NEUROLOGICAL: Patient is alert and oriented x4. Cranial nerves 2 through 12 are grossly intact. ASSESSMENT AND PLAN: 1. Upper gastrointestinal bleed. At this time the patient is having dark stools. She is having symptomatic anemia as well. With reports of dizziness, weakness, and dyspnea. We are going to go ahead and transfuse her with 2 units of packed red blood cells. We have placed her on a Protonix drip. She is hemodynamically stable at this time. We did order for the patient to receive an infusion of gentle fluid resuscitation with normal saline at 75 mL /h. We have placed a consult with Dr. Wen and will await her evaluation and recommendations. We have also held all of her antiplatelets and anticoagulants. We will continue to monitor closely. 2. Symptomatic anemia. As previously mentioned, the patient is currently receiving 2 units of packed red blood cells. We will repeat a CBC after this is done and we will continue to follow. We also have ordered an anemia profile. Will await those results and treat any deficiencies. 3. Coronary artery disease, status post stent placement. At this time given the patient's condition we have decided to hold her aspirin and we will continue to monitor closely. 4. Congestive heart failure. The patient has a last known EF of 60%. She is not exhibiting any signs of exacerbation or fluid overload. We will continue to monitor this closely and continue to follow. 5. Hypertension. As previously mentioned, the patient is hemodynamically stable , though is having blood pressures that are in the low to high 100 systolically. We have held her blood pressure medications at this time and will continue to follow and treat as necessary. 6. History of atrial fibrillation, on Xarelto. We have also held the patient's Xarelto. She is currently in a paced rhythm at a rate of 60. 7. The patient will be placed on CIC with telemetry. She will have vital signs q.4 hours. We will do DVT prophylaxis with SCDs. We will do strict intake and output, incentive spirometry. She will be NPO until evaluated by Dr. Wen per gastroenterology. Also the patient does have a slight decrease in her GFR with a slight increase in her creatinine. This is likely related to volume depletion from acute blood loss. We will do gentle fluid resuscitation as previously mentioned with normal saline at 75 mL/h x2 bags and will repeat a BMP in the morning. Further orders and recommendations pending hospital course, diagnostic studies, and physician evaluation. Dictated by ANAMIKA Ramirez for Jose Barnett MD cc: Jose Barnett MD MTDD
[2017-02-24 18:56] LABS: MANUAL DIFF NEEDED? NO
[2017-02-24 19:07] LABS: EOS# 0.01 X1000 (0.0-0.7); EOS% 0.2 % (0.0-10.0); HEMATOCRIT 25.4 % (37.0-47.0); HEMOGLOBIN 8.1 g/dL (12.0-16.0); LYMPH# 1.02 X1000 (1.2-3.4); LYMPH% 22.9 % (20.5-51.1); MCH 29.3 PG (27-31); MCHC 31.9 g/dL (33-37); MONO# 0.35 X1000 (0.11-0.59); MONO% 7.9 % (1.7-9.3); MPV 13.7 FL (7.4-10.4); PLT 113 X1000 (130-400); RBC 2.76 XMIL (4.2-5.4)
[2017-02-24 19:11] LABS: INR 1.06; PROTIME 11.2 Seconds (9.2-11.7); PTT 23.9 Seconds (22.0-36.0)
--- NOTE | 2017-02-24 22:46 | CONSULTATION ---
DATE OF CONSULTATION: 02/24/2017 REFERRING PHYSICIAN: Jose Miguel MD. PRIMARY CARE PROVIDER: Lance Douglas MD PRIMARY PAPER PRODUCTION ENGINEER: Rony Bojorquez MD. INDICATION FOR CONSULTATION: 1. Anemia. 2. Melena. HISTORY OF PRESENT ILLNESS: The patient is a 76-year-old white female who recently underwent hiatal hernia repair with a Heller myotomy. Postoperatively, she has continued to have nausea with vomiting and abdominal pain. Approximately 1 week ago she reports the onset of melena. She presented for evaluation due to persistent melena and weakness. In the emergency room at [facility] she was found to have melena and a hemoglobin of 7 with hematocrit of 24. She was admitted for further evaluation. PAST MEDICAL HISTORY: 1. COPD. 2. Asthma. 3. Obstructive sleep apnea. 4. Coronary artery disease, status post stent placement. 5. Cardiac pacemaker for sick sinus syndrome. 6. Congestive heart failure. 7. Hyperlipidemia. 8. Hypertension. 9. GERD. 10. Osteoarthritis. 11. Hiatal hernia. 12. Esophageal achalasia. 13. Iron-deficiency anemia. 14. Atrial fibrillation requiring Xarelto. PAST SURGICAL HISTORY: 1. Gastric pacemaker placement. 2. Cardiac stent placement. 3. Bilateral tubal ligation. 4. Back surgery for fusion of L3, L4 and L5. 5. Neck surgery in 2015. 6. Right hip arthroplasty in June 2016. 7. Bilateral carpal tunnel surgery. 8. Appendectomy. 9. Hiatal hernia repair with a laparoscopic Heller myotomy. SOCIAL HISTORY: Negative for tobacco, alcohol, recreational drug use. She lives alone. FAMILY HISTORY: Remarkable that her parents had heart disease. Her siblings have had heart disease, hypertension, colon cancer and diabetes mellitus. ALLERGIES: She has no known medication allergies. HOME MEDICATIONS: 1. Amlodipine. 2. Aspirin. 3. Bumex. 4. Calcium with vitamin D. 5. Vitamin B12. 6. Iron carbonyl with ascorbic acid. 7. Toradol. 8. Metoprolol. 9. Omeprazole. 10. Potassium chloride. 11. Pravastatin. 12. Ranitidine. 13. Xarelto. 14. Carafate. PHYSICAL EXAM: General: She is in no acute distress. Vital signs: Her blood pressure is 129/56, pulse is 60, respirations 17, temperature of 98.3 degrees. HEENT: Negative for jaundice. Neck: Is supple. Pulmonary: Lungs are clear to auscultation with normal respiratory effort. She has a pacemaker in the anterior chest wall. Cardiovascular: Reveals regular rate and rhythm with no gallops or rubs. Abdomen: Reveals normoactive bowel sounds. The abdomen is soft and nontender. There is no rebound or guarding. Extremities: Bilaterally are negative for cyanosis, clubbing, or edema. OBJECTIVE DATA: Reveals a hemoglobin of 8.0 with hematocrit of 25.1. This hemoglobin is posttransfusion of 2 units where hemoglobin went from 7.6 to 8.0 suggesting inadequate compensation due to ongoing bleeding. Her white count is 3.98 and she has 109,000 platelets. Sodium is 142, potassium 4.3, chloride 110, CO2 of 23, BUN 25, creatinine 0.9 with a glucose of 96. Her calcium is 7.1. Her iron is 27 with a vitamin B12 of 542 and a folate of 15.0. On admission on 02/23 her PT was 24.8 and INR of 2.23 with a PTT of 35.1. IMPRESSION: 1. Melena. 2. Unexplained coagulopathy. 3. Nausea with vomiting. 4. Epigastric pain. 5. Nonsteroidal anti-inflammatory drug use. 6. Use of chronic anticoagulation. RECOMMENDATION: 1. The patient has had only a small melenic stools since admission. Her blood pressure has been stable. Therefore, will place patient on the schedule for an EGD in the morning with Dr. Bojorquez. 2. She has an unexplained coagulopathy with an elevated PT and INR. The cause is unclear. In addition to the packed red blood cells as she has received, I recommend 2 units of FFP today and possibly 1 unit of FFP in the morning. After she receives 2 units of FFP this afternoon I will recheck her PT and INR. 3. Please recheck her CBC at 7 p.m. If it continues to drop I would administer additional blood products. 4. Continue Protonix drip. 5. Additional recommendations to follow based on her clinical course. cc: MD Jose Thompson MD
[2017-02-25] MEDS: PROTONIX 80 MG in NS 80 ML IV SCH ×3 (02:24→22:55)
[2017-02-25 04:53] LABS: MANUAL DIFF NEEDED? NO
[2017-02-25 05:08] LABS: EOS# 0.02 X1000 (0.0-0.7); EOS% 0.6 % (0.0-10.0); HEMATOCRIT 23.1 % (37.0-47.0); HEMOGLOBIN 7.1 g/dL (12.0-16.0); LYMPH# 0.91 X1000 (1.2-3.4); LYMPH% 26.5 % (20.5-51.1); MCH 28.6 PG (27-31); MCHC 30.7 g/dL (33-37); MCV 93.1 FL (81-99); MONO# 0.37 X1000 (0.11-0.59); MONO% 10.8 % (1.7-9.3); MPV 13.1 FL (7.4-10.4); NEUT% 62.1 % (42.2-75.2); PLT 102 X1000 (130-400); RBC 2.48 XMIL (4.2-5.4)
[2017-02-25 05:14] LABS: INR 1.02; PROTIME 10.7 Seconds (9.2-11.7); PTT 22.3 Seconds (22.0-36.0)
--- NOTE | 2017-02-25 09:01 | PROGRESS NOTE ---
DATE: 02/25/2017 SUBJECTIVE: She states that she feels a lot better. The reflux is a little better as well. She is able to swallow liquids. She has not had a bowel movement. No pain. PHYSICAL EXAMINATION: Vital Signs: This morning, she remains afebrile. Temperature 98.1 degrees, pulse 59, respirations 16, blood pressure 122/53. Lungs: Clear in all lung drummond. Cardiovascular Examination: Regular rhythm and rate without murmur or S3. Abdomen: Soft. Skin: Warm and dry. No abdominal tenderness. Is and Os: Urine output was 1500 mL. LAB: White count 3440, hematocrit is 23, platelet count 102,000. Chemistry: Sodium 142, potassium 4.3, chloride 110, bicarb 23, BUN 25, creatinine 0.9. Total iron was 27, total iron binding capacity was 364, iron saturation was 7%, unsaturated iron binding was 337, ferritin was 16. ASSESSMENT/PLAN: 1. Melena, explained coagulopathy which has resolved. She had some nausea and vomiting, gastroesophageal reflux, epigastric discomfort. Had been diagnosed with achalasia recently. Had a hiatal hernia repair with a Heller myotomy. Postoperatively, she continued to have nausea, vomiting, abdominal pain, drop in hematocrit and hemoglobin. Dr. Bojorquez to evaluate, potential for EGD. 2. Unexplained coagulopathy but she was on Xarelto for atrial fibrillation. We have held the Xarelto. 3. History of atrial fibrillation. Remains in sinus rhythm. 4. We will see what Dr. Bojorquez wants to do, EGD, advance diet as we can. She has not had a bowel movement in a couple of days. 5. Review of her orders. She is on the intravenous Protonix drip which we have changed to Protonix 40 mg intravenous every 12 hours. Otherwise, not on any medication right now. She is nothing per oral. cc: Brad Chawla MD
[2017-02-25] MEDS ORDERED: DIPRIVAN 1% ONE (09:47)
[2017-02-25] MEDS ORDERED: EPINEPHRINE SYRINGE ONE (10:07)
--- NOTE | 2017-02-25 10:45 | EKG Report ---
Test Performed on : 02/24/2017 06:03:13 AM Test Reason : Lower GI Bleed,Poss. Surgical Patient Blood Pressure : / mmHG Vent. Rate : 060 BPM Atrial Rate : 060 BPM P-R Int : 222 ms QRS Dur : 098 ms QT Int : 450 ms P-R-T Axes : 000 044 222 degrees QTc Int : 450 ms Atrial-paced rhythm with prolonged AV conduction ST \T\ T wave abnormality, consider lateral ischemia Abnormal ECG When compared with ECG of 08-DEC-2016 02:24, Electronic atrial pacemaker has replaced Junctional rhythm. T wave inversion more evident in Lateral leads Confirmed by Areli Esquivel MD ([id number]) on 02/26/2017 12:25:47 PM
--- NOTE | 2017-02-25 12:27 | CONSULTATION ---
DATE OF CONSULTATION: 02/25/2017 INDICATION: Atrial fibrillation, GI bleed. HISTORY OF PRESENT ILLNESS: Ms. Zimmerman is a 76-year-old white female with a history of atrial fib, coronary artery disease, as well as permanent pacemaker implantation. She presented for evaluation of weakness and dark stool that seemed to have been going on for the last several days. Most recently she had an EGD performed by Dr. Bojorquez, that was performed this morning, that seemed to demonstrate some AVMs treated with cautery as well as notation of gastritis. She had been on long-term Xarelto. She noted dark stools but no overt blood noted in her stool and no hematemesis. She denies any overt chest pain. No recent falls. No heart racing spells. PAST MEDICAL HISTORY: 1. Significant for coronary artery disease with previous PCI. Notably, her last heart catheterization was in 2014 at [facility]. This demonstrated a lesion of 30% in the mid LAD. Diagonal had an ostial 70 to 80%. Circumflex has mild regularities. Patent stents were noted in the RCA. PDA had an ostial 50 to 60. EF was 60% on that study. 2. Diastolic heart failure. 3. History of Brugada syndrome. 4. Diastolic heart failure. 5. Paroxysmal atrial fibrillation. 6. Sick sinus syndrome, status post permanent pacemaker implantation. 7. Hypertension. 8. Hyperlipidemia. 9. Previous history of GI bleeds, notably in November of 2016. 10. Reflux disease. 11. Tinnitus. 12. Sleep apnea. SOCIAL HISTORY: She lives alone. Sister that lives nearby. No previous history of tobacco use. FAMILY HISTORY: Significant for a mother and father having history of heart disease. Siblings with heart disease as well including hypertension, colon cancer, diabetes mellitus. REVIEW OF SYSTEMS: A 10 system review of systems is negative except for those things mentioned in HPI. PHYSICAL EXAMINATION: Vital signs: Afebrile. Heart rate 59, blood pressure 147/67. General: She is in no acute distress. HEENT: Oropharynx is moist. Normal normal dentition. Eye examination is pink conjunctivae, white sclerae. Neck: Examination shows no obvious thyromegaly or thyroid tenderness. Cardiovascular: She sounds to be in a regular rate and rhythm. She has no obvious murmurs. No S3. She is in a paced rhythm by telemetry. She has no lower extremity edema. Chest: Exam sounds relatively clear to auscultation bilaterally. She has no increased work of breathing. Abdomen: Soft, nontender, nondistended. She has no obvious organomegaly. Skin Exam: Warm and dry throughout without any rashes. Neurological: Moving all extremities well. Cranial nerves 2 through 12are intact without any sensation deficits. Psychiatric: Alert and orient pleasant. Normal mood and affect. PERTINENT DATA: Her EKG on the at 6:03 shows an atrial paced rhythm with ventricular sensed complexes. Her white count is 3.4, hematocrit 23.1, platelet count 102,000. INR 1.02. Sodium yesterday was 142, potassium 4.3, BUN 25, creatinine 0.9. ASSESSMENT: 1. Gastrointestinal bleed. 2. History of atrial fibrillation as well as coronary disease. PLAN: At this point, the patient has been discontinued off her Xarelto as well as her aspirin therapy. I would agree with continuing withholding these medications. We will follow up on the results of her colonoscopy tomorrow and evaluate the recommendations of Dr. Bojorquez regarding further anticoagulation usage. cc: MD Brad Dacosta MD
[2017-02-25] MEDS: REGLAN IV SCH ×2 (13:07→18:19)
[2017-02-25] MEDS ORDERED: GOLYTELY PO ONE (14:00)
[2017-02-25] MEDS: CARAFATE LIQUID PO SCH ×2 (14:19→21:38)
--- NOTE | 2017-02-25 17:50 | OPERATIVE NOTE ---
PROCEDURE DATE: 02/25/2017 PHYSICIAN: Dr. Kline. TITLE PROCEDURE: Esophagogastroscopy with hemostasis. PREOP DIAGNOSES: 1. Melena. 2. Anemia. Admission hematocrit 24% required 2 units of blood transfusion now current hematocrit is 22%. 3. Coagulopathy secondary to Xarelto which was held for 2 days. 4. History of atrial fibrillation and coronary disease on Xarelto being monitored Dr. Bradley. 5. History of recent surgery in the form of hiatal hernia repair and Heller myotomy few months ago by Dr. Gee followed by worsening acid reflux requiring Prilosec, Carafate and Reglan at home. POSTOP DIAGNOSES: 1. Z-line was at 36 cm. 2. Hiatal hernia measuring about 5-6 cm sliding type. 3. Evidence of mild gastritis in the hiatal sac. 4. Mild gastritis in the stomach, body, antrum. 5. Normal fundus, cardia, incisura and hiatal hernia retroflexion. 6. Evidence of 2 arterial venous malformations small nonbleeding in the third portion duodenum which was treated with epinephrine injection followed by black wire cautery. ESTIMATED BLOOD LOSS: Minimal. COMPLICATIONS: None. ANESTHESIA: Monitored anesthesia care. SPECIMEN: None. PROCEDURE: Informed consent the patient risks, benefits, indications, alternatives, patient was prepared for EGD. The risks of infection, bleeding, pain, trauma to the surrounding structures explained the patient among others and she acknowledged and agreed to proceed. The patient brought to the OR. She was turned to the left position, a bite block was placed on. After adequate monitored anesthesia scope was introduced advanced towards all the way to the third portion of duodenum. The esophagus normal in the entire length. Z-line was at 30 cm. There was no evidence any ulcerations or esophagitis. There was evidence of hiatal hernia measuring 5 cm sliding type. There was evidence of mild erythema at certain spots in the hiatal sac. There was no evidence any ulceration the hiatal sac. The stomach and body showed evidence mild gastritis. There was no erosions, ulcerations noted. Retroflexion stomach revealed internal hiatal hernia but no evidence of any ulcerations or any evidence of varices. The duodenal bulb and second portion appeared normal. The third portion duodenum showed evidence of 2 AVMs which were nonbleeding and small, these were treated with epinephrine injection followed by black wire cautery successfully. The air was withdrawn. The patient tolerated procedure and was stable condition. RECOMMENDATIONS: 1. The patient will continue Protonix twice daily for now and will keep her on Protonix twice daily on discharge for the next 1 month and then lower down to once daily for another 3 months. 2. Patient continue on Carafate 1 g 6 hours for 6 weeks. 3. Patient will be on Reglan 10 mg p.o. q.6 hours for now and hold for side effects like tardive dyskinesia. 4. The patient is on clear liquid diet advance as tolerated. 5. Patient will be on aspirin precautions and chew the food well and drink plenty fluids with meals. 6. If patient continues to have symptomatic acid reflux and choking spells we will discuss that with Dr. Gee in order to pursue partial fundoplication. 7. Will also consult Dr. Bradley as patient is concerned about holding Xarelto for now because of her known history of coronary disease and atrial fibrillation. I called and discussed that with Dr. Bradley as well. 8. Will keep a close eye on her hemoglobin and hematocrit and type and cross, transfuse hematocrit more than 25%. 9. Further recommendations depending hospital stay. cc: MD Rony Milton MD Allen J. Schmidt, MD
[2017-02-26] MEDS: CARAFATE LIQUID PO SCH ×4 (01:06→20:34)
[2017-02-26] MEDS: REGLAN IV SCH ×3 (03:17→17:55)
--- NOTE | 2017-02-26 08:23 | PROGRESS NOTE ---
DATE: 02/26/2017 SUBJECTIVE: Ms. Zimmerman reports she is doing well. She feels better today. No heart racing overnight. PHYSICAL EXAMINATION: Vital Signs: Afebrile. Heart rate 61. Blood pressure 109/60. General: No acute distress. Cardiovascular: She is in a regular rate and rhythm. She has no murmurs. No S3. No lower extremity edema. Chest: Exam sounds clear bilaterally. No increased work of breathing. Abdomen: Soft, nontender. No obvious organomegaly. Skin: Warm and dry throughout. PERTINENT DATA: Laboratories from yesterday show a white count of 3.4, hematocrit 23, platelet count of 102,000. She has no recent labs today. ASSESSMENT: 1. Gastrointestinal bleed. 2. History of atrial fibrillation. PLAN: We will continue with holding the Xarelto. She is undergoing colonoscopy today. We will use the findings from the colonoscopy and the EGD regarding further treatment with anticoagulation. cc: MD Brad Dacosta MD
--- NOTE | 2017-02-26 08:47 | CONSULTATION ---
DATE OF CONSULTATION: 02/25/2017 REASON FOR CONSULTATION: Gastroesophageal reflux. May need fundoplication. HISTORY OF PRESENT ILLNESS: This is a 76-year-old female, known to or status post laparoscopic hiatal hernia repair and laparoscopic Heller myotomy on 12/12/2016. She was admitted two days ago with symptomatic anemia and underwent an EGD this morning by Dr. Bojorquez. She also has noted a significant increase in reflux-type symptoms with indigestion, heartburn, and some nausea and vomiting since her operation with me 2 months ago. Her dysphagia has seemingly resolved although she noted some dysphagia a few days ago. She has had a lot of severe coughing spells since surgery. She is currently taking Carafate 4 times a day as well as omeprazole daily and ranitidine 300 mg daily. So far, this does not seem to be controlling her symptoms. On the EGD today, Dr. Bojorquez found a couple of small AVMs in her duodenum that were not actively bleeding. She had some very mild gastritis near the hiatus, and she had an apparent recurrent 5-6 cm hiatal hernia. There were no ulcers or Domenico's lesions. She had no stricture. PAST MEDICAL HISTORY: Achalasia status post Heller myotomy, COPD, asthma, obstructive sleep apnea, coronary artery disease, sick sinus syndrome, status post cardiac pacemaker, congestive heart failure, hyperlipidemia, hypertension, osteoarthritis, hiatal hernia status post laparoscopic hiatal hernia repair, iron deficiency anemia, atrial fibrillation. PAST SURGICAL HISTORY: Gastric pacemaker placement, cardiac stent placement, bilateral tubal ligation, fusion of L3-4 and 5, neck surgery 2015, right hip replacement in 06/2016, bilateral carpal tunnel repair, appendectomy, laparoscopic hiatal hernia with Heller myotomy. HOME MEDICATIONS: 1. Bumex. 2. Potassium chloride. 3. Amlodipine/benazepril. 4. Pravastatin. 5. Metoprolol. 6. Aspirin 81 mg daily. 7. Xarelto 20 mg p.o. daily. 8. Omeprazole 40 mg p.o. daily. 9. Carafate 1 g p.o. four times daily. 10. Calcium and vitamin D. 11. Vitamin B12. 12. Iron tablets. 13. Toradol as needed. ALLERGIES: No known drug allergies. REVIEW OF SYSTEMS: Ten systems reviewed and negative except as noted above in HPI. FAMILY HISTORY: Notable for heart disease, colon cancer, and diabetes. SOCIAL HISTORY: Negative for tobacco, alcohol, or illicit drug use. PHYSICAL EXAMINATION: Vital Signs: Temperature 98.2 degrees, pulse 60, respirations 18, blood pressure 151/64. O2 saturation 100%. General: She is a well-developed, well-nourished female, in no acute distress and in good spirits. HEENT: Normocephalic atraumatic. Extraocular muscles intact. Pupils equal, round, reactive to light. Sclerae anicteric. Neck: Supple. No thyromegaly. CV: Regular rate and rhythm. Respiratory: No work of breathing. Gastrointestinal: Soft, nontender, nondistended. No masses. Well-healed laparoscopic incisions. No hernias. Skin: Warm and dry. No rash. Musculoskeletal: Moves all extremities equally and well. Extremities: No clubbing, cyanosis, or edema. LABORATORY: White blood cell count 3.4, hemoglobin 7.1, hematocrit 23, platelet count 102,000. Metabolic profile reviewed and unremarkable. ASSESSMENT AND PLAN: A 76-year-old female with multiple medical problems, now with symptomatic anemia of GI source. The source is not entirely clear. She had some AVMs noted on EGD. She is scheduled for a colonoscopy tomorrow and is undergoing a bowel prep now. She has symptomatic gastroesophageal reflux and a recurrent hiatal hernia. I do not think she has any persistent dysphagia due to persistent achalasia. I will continue to follow along. The plans are to switch her to Protonix by mouth twice daily and continue the Carafate and ranitidine. If this fails to control her symptoms significantly, then we will have to consider reoperation to repair the recurrent hiatal hernia and a partial or 360 degree fundoplication. cc: MD Brad Kenny MD
[2017-02-26] MEDS: PROTONIX 80 MG in NS 80 ML IV SCH ×2 (09:27→17:56)
[2017-02-26] MEDS: CENTRUM TABLET PO SCH (11:30)
[2017-02-26] MEDS ORDERED: DIPRIVAN 1% ONE (13:50)
[2017-02-26] MEDS ORDERED: XYLOCAINE-MPF 2% ONE (13:50)
[2017-02-26] MEDS ORDERED: ROBINUL ONE (13:50)
--- NOTE | 2017-02-26 14:13 | PROGRESS NOTE ---
DATE: 02/26/2017 SUBJECTIVE: Ms. Zimmerman is feeling good this morning. She is going to have her colonoscopy reviewed. The EGD done by Dr. Bojorquez yesterday revealed the Z-line was at 38 cm. Hiatal hernia measured 5-6 cm sliding-type with evidence of mild gastritis in the hiatal sac, mild gastritis in the stomach, body and atrium. Normal fundus and cardia, incisura and hiatal hernia. Retroflexion revealed evidence of 2 atrial venous malformations. Small amount of bleeding in the third portion of duodenum which was treated with epinephrine injection followed by black wire cautery. We are holding her Xarelto. Dr. Coyle was consulted; he agrees with holding this. We will get colonoscopy and see what we find. OBJECTIVE: General: On exam today, she was up in the bathroom, able to walk back to the bed on her own accord, strong and feels good. Vital Signs: Temp 98.3 degrees, pulse 60, respirations 18, blood pressure 109/60. HEENT: CVP less than 6 cm. Lungs: Clear in all lung drummond. Cardiovascular exam: Regular rhythm and rate without murmur or S3. Abdomen: Soft. Skin: Warm and dry. Extremities: No pedal edema. : Urine output looked like it was 2500 mL. LAB: White count 3440, hematocrit 23, platelet count 102,000. Sodium 142, potassium 4.3, chloride 110, bicarbonate 23, BUN 25, creatinine 0.9. So, creatinine has come down from 1.2. ASSESSMENT AND PLAN: 1. Melena, anemia. Hematocrit 24 that required 2 units of blood transfusion. Her hematocrit is 22. Had a coagulopathy secondary to Xarelto, which we have held now. This is the third day for history of atrial fibrillation, coronary artery disease. Esophagogastroduodenoscopy results above and colonoscopy today. 2. History of atrial fibrillation, underlying coronary artery disease. Aware. Appears to be hemodynamically stable. 3. History of recurrent surgery for hiatal hernia repair and Heller myotomy a few months ago per Dr. Gee. Worsening acid reflux. Continue the Prilosec, Carafate and the Reglan. 4. Creatinine has improved. Fluid volume status looks good. Continue her present orders. She is getting iron supplement. Reglan 10 mg every 8 hours, Protonix 40 mg intravenous every 12 hours and Carafate 1 g every 6 hours. She has tolerated the prep for colonoscopy today. cc: Brad Chawla MD
[2017-02-26] MEDS: ICAR-C PO SCH (20:34)
--- NOTE | 2017-02-26 23:18 | OPERATIVE NOTE ---
PROCEDURE DATE: PROCEDURE: Colonoscopy. PREOPERATIVE DIAGNOSIS: Anemia. POSTOPERATIVE DIAGNOSIS: Diverticulosis. Otherwise, normal. OPERATION IN DETAIL: After informed consent and adequate intravenous sedation by Anesthesia, the scope introduced all the way into the cecum. There was no AVM seen. No tumors, angiodysplasia, telangiectasis, colitis seen. There are scattered diverticula present. No evidence of any blood, fresh or old in the colon. The scope was withdrawn. The patient tolerated the procedure well without any immediate complications. cc: MD Brad Cornejo MD
[2017-02-27] MEDS: PROTONIX IV SCH ×2 (02:37→14:39)
[2017-02-27] MEDS: REGLAN IV SCH ×3 (02:37→20:19)
[2017-02-27] MEDS: CARAFATE LIQUID PO SCH ×4 (02:37→20:19)
[2017-02-27] MEDS: CENTRUM TABLET PO SCH (08:44)
[2017-02-27] MEDS: ICAR-C PO SCH ×2 (08:44→20:19)
--- NOTE | 2017-02-27 08:49 | DISCHARGE SUMMARY ---
ADMISSION DATE: 02/23/2017 DISCHARGE DATE: HISTORY OF PRESENT ILLNESS: This is a 76-year-old with a past medical history most notable for COPD, obstructive sleep apnea, coronary artery disease, status post stent placement, pacemaker placed, congestive heart failure, hypertension, anemia. Most recently admitted in November of 2016 for chest pain as well as anemia. During this visit, she was diagnosed with iron deficiency anemia and some esophageal achalasia and hiatal hernia, diagnosis with iron-deficiency anemia. She has reported that she has received iron before and I think she meant enteral iron before. She has had problems with esophageal stricture. She has had to have multiple EGDs done. In[employer] Developer, Dr. Bojorquez, most recently in December of 2016, Dr. Gee performed a laparoscopic hiatal hernia repair, as well as laparoscopic Heller myotomy. His findings reported that she had a sliding hiatal hernia. At the conclusion of surgery, he did perform an EGD which revealed no esophageal perforation. Dr. Gee also reported that he decided not to do a fundoplication due the fact that the patient was not having symptomatic reflux. She did not have any reflux in her barium swallow or any esophagitis on her under EGD as well. She had no esophageal perforation. She was discharged to follow up with Dr. Bojorquez. The patient states that ever since she underwent this procedure, she has had worsening reflux to where now she has trouble swallowing and keeping foods down, stating that she is having a lot of problems with vomiting. Saw Dr. Bojorquez for this. He did place her on medication. She did receive an EGD approximately 3 weeks ago. Did state that there were no new known findings. Patient states approximately 5 days before admission, she noticed she was having some darker looking stools but her main complaint at the time, she began having a lot of weakness and dizziness, and exertional dyspnea. Presented to the ER at [facility]. Informed by physicians, she had a normal hemoglobin and hematocrit, and was sent over here for Dr. Wen's consult. HOSPITAL COURSE: Dr. Bojorquez saw. She had an EGD on 02/25/2017. This was done by Dr. Bojorquez. EGD showed the Z-line was at 36, hiatal hernia measuring 5-6 cm, sliding-type. Evidence of mild gastritis and a hiatal sac. Mild gastritis in the stomach body and antrum. Normal fundus, cardia incisura, hiatal hernia, retroflexion, evidence of two arterial AV malformations, and small nonbleeding 3rd portion of the duodenum which was treated with an epinephrine injection, followed by black wire cautery. She had a followup colonoscopy and Dr. Gee followed up on her as well. The colonoscopy was unrevealing other than diverticulosis. We held her Xarelto. Hemoglobin and hematocrit were 7 and 23. I feel like we ought to give her 2 units of blood, given her underlying coronary artery disease and her iron studies which showed low iron and low saturation. Then I think she can be discharged. We are going to hold the Xarelto for a couple weeks and have her start back and follow up with Dr. Douglas so we will give her 2 units of blood. Discharge her home. DISCHARGE MEDICATIONS: Will be Icar-C 1 b.i.d., Centrum Silver, Protonix 40 mg twice a day, and Carafate 1 g q.6 hours. cc: Brad Chawla MD
[2017-02-27 08:57] LABS: HEMATOCRIT 26.6 % (37.0-47.0); HEMOGLOBIN 8.3 g/dL (12.0-16.0)
[2017-02-27] MEDS ORDERED: NS 500 ML ONE (12:44)
--- NOTE | 2017-02-27 16:23 | PROGRESS NOTE ---
DATE: 02/27/2017 SUBJECTIVE: The patient currently resting in bed. She is eating her meal. She denies any nausea, vomiting, vomiting blood, passing blood in the stools. She had 1 bowel movement today which did not have any blood. She had a colonoscopy done yesterday which showed diverticulosis, otherwise normal. She had an EGD done 2 days ago which showed evidence of 2 AVMs in the 3rd portion of duodenum which were cauterized. Her hemoglobin and hematocrit is improving, currently at 26%. She is fixing to get 2 units of blood transfusion before discharge. Her Xarelto and aspirin have been held per the primary care team. Denies any fevers, rigors, or chills. OBJECTIVE: Vital Signs: Temperature 97.5, pulse of 63, respiratory rate of 15 , blood pressure 132/75, saturating 98% on room air. General Appearance: Moderately built, sitting in bed, in no acute distress. HEENT: No pallor. No icterus. Neck: Supple. Abdomen: Soft , nontender, nondistended. Bowel sounds. No rebound. Extremities: No cyanosis, clubbing, edema. Neurologic: Alert, awake, oriented x3. LABS: Hemoglobin and hematocrit is 8.3, 26.6. ASSESSMENT AND PLAN: 1. Stool for occult blood was positive. Melena improved after esophagogastroduodenoscopy with cautery. 2. Diverticulosis. Will avoid corn, nuts, and seeds in diet. 3. Anemia. We will keep her on Iron C b.i.d. for 3 months and multivitamin once daily for 3 months. 4. Atrial fibrillation and coronary disease. Her aspirin has also has been held by the primary care team and she will be seeing Dr. Bradley on discharge. 5. History of Heller myotomy and hiatal hernia repair a few months ago, being followed by Dr. Gee. Since the patient has recurrence of the hiatal hernia Dr. Gee is considering conservative management with maximizing medical therapy and to consider reoperation if her symptoms persist. 6. On discharge we will continue on Protonix twice daily for 3 months, Carafate 1 g q.6 hours for 4 weeks, Reglan 10 mg every 8 hours for 30 days and hold for side effects like tardive dyskinesia. She will take small frequent meals and elevate the head of the bed to 30-45 degrees when lying down. 7. Gastrointestinal prophylaxis with proton pump inhibitors. 8. Bowel regimen. She is already having good bowel movements. 9. Above plan discussed with the patient. cc: MD Brad Wallis MD David Francis, MD Jason R. Seale, MD MTDD
[2017-02-28] MEDS: PROTONIX IV SCH (03:01)
[2017-02-28] MEDS: CARAFATE LIQUID PO SCH ×2 (03:01→08:14)
[2017-02-28] MEDS: REGLAN IV SCH (03:02)
[2017-02-28 05:18] LABS: HEMATOCRIT 29.2 % (37.0-47.0); HEMOGLOBIN 9.1 g/dL (12.0-16.0); MCH 28.9 PG (27-31); MCHC 31.2 g/dL (33-37); MCV 92.7 FL (81-99); PLT 101 X1000 (130-400); RBC 3.15 XMIL (4.2-5.4)
[2017-02-28] MEDS ORDERED: LASIX IV ONE (07:15)
[2017-02-28] MEDS: CENTRUM TABLET PO SCH (08:14)
[2017-02-28] MEDS: ICAR-C PO SCH (08:14)
[2017-02-28 08:23] VITALS: BP 172/77
--- NOTE | 2017-02-28 09:18 | DISCHARGE SUMMARY ---
ADMISSION DATE: 02/23/2017 DISCHARGE DATE: 02/28/2017 HOSPITAL COURSE: We did not discharge her yesterday. I gave her a couple units of blood. This morning she was a little short of breath so I gave her 60 mg Lasix IV and had remarkable improvement. She felt good and wanted to go home. Noted that the blood pressure a little high this morning. Get her back on her usual medications. DISCHARGE MEDICATIONS: 1. Icar twice a day. 2. She will continue amlodipine benazepril which is 12/29 one a day. 3. I am going to have her discontinue her aspirin at Dr. Bojorquez's request. 4. She will continue to take her Bumex q.a.m. 5. She will be on a calcium carbonate and vitamin D 3, which she takes 1 a day. Vitamin B 12 1000 mg p.o. daily. 6. Metoprolol succinate 50 mg daily. 7. Omeprazole 40 mg twice a day. 8. Potassium chloride bicarbonate citrate. 9. Pravastatin 40 mg a day. 10. Potassium chloride getting 25 mEq a day. 11. Ranitidine 300 mg a day. 12. Carafate 1 g 4 times a day. cc: Brad Chawla MD
--- NOTE | 2017-02-28 14:56 | PROGRESS NOTE ---
DATE: 02/28/2017 SUBJECTIVE: The patient is currently sitting in a chair. She is getting ready to be discharged. Yesterday, the discharge was canceled as the patient was receiving blood transfusion. Last night, the patient had one bowel movement which was black and dark in color suggesting melena and old blood. She denies any abdominal pain, nausea, vomiting, or vomiting of blood. She denies any feeling of dizziness or weakness at the movement. She feels well and she wants to go home. She has been tolerating food well. OBJECTIVE: She denies any fevers, rigors, or chills. Vital Signs: Temperature 98, pulse rate of 60, respiratory rate 18, blood pressure 172/77, saturating 99% 2 L nasal cannula. General Appearance: Moderately well-nourished, lying in bed, in no distress. HEENT: Pale conjunctivae. No icterus. Pupils equal, reactive to light. Neck is supple. Abdomen is soft , nontender, nondistended. Bowel sounds. No rebound or guarding. Extremities: No cyanosis , clubbing, edema. Her edema improved after giving Lasix which she was given last night. Neuro: She is alert, awake, oriented. LABORATORY DATA: Hemoglobin and hematocrit is 9.1 and 29.2, white count 5.6, platelet count of 101,000. MCV of 92.7. IMPRESSION AND PLAN: 1. Melena. Patient will continue on Omeprazole 40 mg twice daily at home for 3 months and then will switch down to Zantac twice daily. 2. The patient has diverticulosis and she should avoid corn, nuts and seeds in diet. 3. The patient is status post Heller myotomy and hiatal hernia repair a few months ago by Dr. Gee, and she is having worsening reflux since then. In that regard, she will continue on Carafate 1 g q. 6 hours for 4 weeks, and we will keep her on Reglan 10 mg q.6 hours for 4 weeks and hold for side effects like tardive dyskinesia. 4. She will take small frequent meals. Head of the bed elevated 30-40 degrees when lying down. 5. The patient started on a full liquid diet for 4 days and soft diet for 4 days. 6. Atrial fibrillation and coronary artery disease. The patient's aspirin and Xarelto have been withheld. She is fixing to see Dr. Bradley and Dr. Lance Douglas on discharge, and they will decide about restarting those medications. 7. Gastrointestinal prophylaxis with proton pump inhibitors and bowel regimen. She is already having bowel movements, and if she ever gets constipated, she will benefit from taking Metamucil at bedtime. 8. Anemia. She is to continue iron C b.i.d. for 3 months and multivitamin once daily for 3 months. 9. Further recommendations pending hospital course. cc: MD Brad Wallis MD MTDD
== END 2017-02-28 10:40 | disposition home or self-care (01) ==
LOC: P.ED 17:36 → 3S 22:33 → SUATTDRO 22:33
PROVIDERS: ADMIT Emergency Medicine; ATTEND Emergency Medicine
PROC: EN.HEAT (2017-02-25 09:37)